=== PATIENT | female | born 1945 | race Caucasian/White ===

== ENCOUNTER 2019-08-27 08:10 | Day surgery (SDC) | payer MEDICARE, BC ==
[~2019-08-27 08:10] MED LIST: Midazolam 1 MG/ML 2 ML SDV ONE; Propofol 200 MG/20 ML SDV ONE; fentaNYL 100 MCG/2 ML SDV ONE
[2019-08-27] MEDS ORDERED: Lactated Ringers 1,000 ML IV SCH (09:00)
[2019-08-27] MEDS ORDERED: Cyanocobalamin (Vitamin B12) 1,000 MCG/ML SDV IM ONE (09:00)
[2019-08-27] MEDS ORDERED: Glycopyrrolate 0.2 MG/ML 2 ML SDV IVPUSH ONE (09:15)
[2019-08-27] MEDS ORDERED: MVI, Adult with Vitamin K 10 ML, Thiamine 200 MG, Chromium/Copper/Mang/Selen/Zn 1 ML in... IV ONE ×4 (10:00)
[2019-08-27] MEDS ORDERED: Pantoprazole 40 MG Vial IVPUSH ONE (10:39)
[2019-08-28 17:10] LABS: H. PYLORI BREATH TEST Negative (Negative)
--- NOTE | 2019-09-04 13:04 | OR ---
DATE OF PROCEDURE: 08/27/2019 SURGEON: Glenroy Bernal MD PREOPERATIVE DIAGNOSIS: Dysphagia status post Uadrey-en-Y gastric bypass. POSTOPERATIVE DIAGNOSIS: Dysphagia status post Audrey-en-Y gastric bypass with: 1. Large marginal ulcer. 2. Foreign body (sutured) at gastrojejunostomy. OPERATIVE PROCEDURE: Upper GI endoscopy with removal of suture at gastrojejunostomy ([id number]). ANESTHESIA: IV sedation. INDICATION FOR PROCEDURE: The patient is 9 years status post Audrey-en-Y gastric bypass presenting with some increasing dysphagia. The plan is to proceed with upper GI endoscopy with biopsies and/or dilation as indicated. Potential risks including bleeding and perforation were discussed and the patient wishes to proceed. DETAILS OF PROCEDURE: The patient was taken to the operating room and placed in a left lateral decubitus position. IV sedation was administered after which the upper GI endoscope was passed orally through the length of the esophagus and into the area of the gastric pouch. At that point, the patient was noted to have some narrowing of the gastrojejunostomy, but this was associated with a large marginal ulcer located within adjacent to the gastrojejunostomy. This was covered with thick fibrinous exudate with no true stricture per se. There was also a Prolene suture which was then ligated into the wound. This was excised with the endoscopic scissors and at that point the scope was passed through the area of the gastrojejunostomy roughly 20 cm from the Audrey limb with no additional abnormalities being noted. The scope was then withdrawn and the procedure then concluded. Plan will be to give Protonix 40 mg IV in the recovery room and then begin Protonix 40 mg daily. We will have her followup with Lea Ornelas in roughly 2 weeks. Glenroy Bernal MD /[id number]
== END 2019-08-27 13:01 | disposition home or self-care (01) ==
LOC: JP.SDS 08:10
PROVIDERS: ATTEND Surgery
DX: K28.9 Gastrojejunal ulcer, unspecified as acute or chronic, without hemorrhage or perforation (principal); T18.2XXA Foreign body in stomach, initial encounter; I10 Essential (primary) hypertension; E11.9 Type 2 diabetes mellitus without complications; E78.5 Hyperlipidemia, unspecified; F32.9 Major depressive disorder, single episode, unspecified; G31.84 Mild cognitive impairment of uncertain or unknown etiology; M48.00 Spinal stenosis, site unspecified; Z88.2 Allergy status to sulfonamides
CPT/HCPCS: 43247; 83013; C9113; J2704; J3010; J3411; J3420; J3490; J7120; J2250

== ENCOUNTER 2019-09-21 21:07 | Emergency (ER) | payer MEDICARE, BC ==
--- NOTE | 2019-09-21 22:13 | EDM.PDOC ---
ED HPI GENERAL MEDICAL PROBLEM - General Chief Complaint: Abdominal Pain Time Seen by Provider: 09/21/19 22:06 Source of Information: Reports: Patient, Family, RN Notes Reviewed History Limitations: Reports: No Limitations - History of Present Illness INITIAL COMMENTS - FREE TEXT/NARRATIVE: 74-year-old female presents emergency department the complaint of intermittent nausea and vomiting, she is a known history of gastric bypass about 17 years ago has went through EGD on the of this last month does have a known ulcer has had problems keeping her medications down - Related Data Allergies Allergy/AdvReac Type Severity Reaction Status Date / Time No Known Allergies Allergy Verified 09/21/19 21:37 Home Meds: Home Meds Aspirin [Halfprin] 81 mg PO DAILY 08/26/19 [History] Calcium Carbonate 1,000 mg PO ASDIRECTED PRN 08/26/19 [History] Cholecalciferol (Vitamin D3) [Vitamin D3] 1,000 unit PO DAILY 08/26/19 [History] Clobetasol [Clobetasol Propionate 0.05%] 30 gm TOP BID 08/26/19 [History] Cyanocobalamin (Vitamin B-12) [B-12] 1,000 mcg PO DAILY 08/26/19 [History] Cyclobenzaprine HCl 5 mg PO TID PRN 08/26/19 [History] Iron 66 mg PO DAILY 08/26/19 [History] Lactobacillus Acidophilus [Acidophilus] 1 each PO DAILY 08/26/19 [History] Lisinopril 40 mg PO DAILY 08/26/19 [History] Magnesium Oxide 250 mg PO DAILY 08/26/19 [History] Metoprolol Succinate 150 mg PO DAILY 08/26/19 [History] Multivitamin [Multi-Vitamin Daily] 1 each PO DAILY 08/26/19 [History] Pantoprazole [ProTONIX] 40 mg PO DAILY 08/26/19 [History] Rosuvastatin [Crestor] 20 mg PO DAILY 08/26/19 [History] Sertraline [Zoloft] 100 mg PO DAILY 08/26/19 [History] amLODIPine Besylate [Amlodipine Besylate] 10 mg PO DAILY 08/26/19 [History] hydrOXYzine HCl [Hydroxyzine HCl] 50 mg PO DAILY 08/26/19 [History] metFORMIN [Glucophage] 2,000 mg PO BIDMEALS 08/26/19 [History] Insulin Detemir [Levemir Flextouch] 10 unit SQ BEDTIME 08/27/19 [History] Past Medical History HEENT History: Reports: Cataract, Hard of Hearing, Impaired Vision Cardiovascular History: Reports: High Cholesterol, Hypertension Gastrointestinal History: Reports: GERD Genitourinary History: Reports: Renal Calculus [place] NET History: Reports: , Spontaneous Musculoskeletal History: Reports: Arthritis, Back Pain, Chronic, Gout Neurological History: Reports: CVA, Headaches, Chronic, Other (See Below) Other Neuro History: spinal stenosis Psychiatric History: Reports: Depression Endocrine/Metabolic History: Reports: Diabetes, Type II, Obesity/BMI 30+ Dermatologic History: Reports: Eczema - Infectious Disease History Infectious Disease History: Reports: Chicken Pox, Measles - Past Surgical History HEENT Surgical History: Reports: Cataract Surgery Cardiovascular Surgical History: Reports: None GI Surgical History: Reports: Appendectomy, Bariatric Procedure, Colonoscopy, EGD Female Surgical History: Reports: Section Neurological Surgical History: Reports: Lumbar Spine Musculoskeletal Surgical History: Reports: Carpal Tunnel, Hip Replacement, Knee Replacement Other Musculoskeletal Surgeries/Procedures:: right hip and both knees Dermatological Surgical History: Reports: Skin Biopsy Social & Family History - Family History Family Medical History: Noncontributory - Tobacco Use Smoking Status *Q: Never Smoker - Caffeine Use Caffeine Use: Reports: Tea - Recreational Drug Use Recreational Drug Use: No ED ROS GENERAL - Review of Systems Review Of Systems: See Below Constitutional: Reports: No Symptoms HEENT: Reports: No Symptoms Respiratory: Reports: No Symptoms Cardiovascular: Reports: No Symptoms GI/Abdominal: Reports: Nausea, Vomiting. Denies: Abdominal Pain : Reports: No Symptoms ED EXAM, GI/ABD - Physical Exam Exam: See Below Exam Limited By: No Limitations General Appearance: Alert, WD/WN, No Apparent Distress Respiratory/Chest: No Respiratory Distress, Lungs Clear, Normal Breath Sounds, No Accessory Muscle Use, Chest Non-Tender Cardiovascular: Regular Rate, Rhythm, No Murmur GI/Abdominal Exam: Soft, Non-Tender Course - Vital Signs Last Recorded V/S: Last Vital Signs Temp 97.9 F 09/21/19 21:48 Pulse 97 09/21/19 22:04 Resp 16 09/21/19 21:48 BP 133/76 09/21/19 22:04 Pulse Ox 96 09/21/19 21:48 - Orders/Labs/Meds Orders: Active Orders 24 hr Category Date Time Status Peripheral IV Care [RC] . DIRECTED Care 09/21/19 22:50 Ordered MVI, Adult with Vitamin K [Infuvite Adult] 10 ml Med 09/21/19 22:50 Ordered Thiamine [Vitamin B-1] 200 mg Folic Acid 1 mg Magnesium Sulfate [Magnesium Sulfate 50%] 2 gm Dextrose 5%-Lactated Ringers 1,000 ml IV ONETIME Sodium Chloride 0.9% [Saline Flush] Med 09/21/19 22:50 Ordered 10 ml FLUSH ASDIRECTED PRN Peripheral IV Insertion Adult [OM.PC] Urgent Oth 09/21/19 22:50 Ordered Medication Orders Multivitamins/Minerals 10 ml/Thiamine HCl 200 mg/ Folic Acid 1 mg/ Magnesium Sulfate 2 gm/ Dextrose/Lactated Ringer' s 1,016.2 mls @ 999 mls/hr IV ONETIME ONE Stop: 09/21/19 23:51 Sodium Chloride (Saline Flush) 10 ml FLUSH ASDIRECTED PRN PRN Reason: Keep Vein Open Labs: Laboratory Tests 09/21/19 09/21/19 09/21/19 Range/Units 22:11 22:18 22:18 WBC 12.4 H (4.5-11.0) K/uL RBC 4.72 (3.30-5.50) M/uL Hgb 12.3 (12.0-15.0) g/dL Hct 39.3 (36.0-48.0) % MCV 83 (80-98) fL MCH 26 L (27-31) pg MCHC 31 L (32-36) % Plt Count 302 (150-400) K/uL Neut % (Auto) 70 H (36-66) % Lymph % (Auto) 20 L (24-44) % [place] % (Auto) 9 H (2-6) % Eos % (Auto) 2 (2-4) % Baso % (Auto) 0 (0-1) % Sodium 140 (140-148) mmol/L Potassium 3.8 (3.6-5.2) mmol/L Chloride 101 (100-108) mmol/L Carbon Dioxide 26 (21-32) mmol/L Anion Gap 13.3 (5.0-14.0) mmol/L BUN 15 (7-18) mg/dL Creatinine 1.2 H (0.6-1.0) mg/dL Est Cr Clr Drug Dosing 33.52 mL/min Estimated GFR (MDRD) 44 L (>60) Glucose 132 H (74-106) mg/dL Lactic Acid (0.4-2.0) mmol/L Calcium 8.8 (8.5-10.1) mg/dL Total Bilirubin 0.8 (0.2-1.0) mg/dL AST 20 (15-37) U/L ALT 18 (12-78) U/L Alkaline Phosphatase 108 (46-116) U/L Total Protein 7.2 (6.4-8.2) g/dL Albumin 3.1 L (3.4-5.0) g/dL Globulin 4.1 H (2.3-3.5) g/dL Albumin/Globulin Ratio 0.8 L (1.2-2.2) Urine Color [place] A (YELLOW) Urine Appearance Slightly cloudy A (CLEAR) Urine pH 5.5 (5.0-8.0) Ur Specific Agency 1.025 (1.008-1.030) Urine Protein Negative (NEGATIVE) mg/dL Urine Glucose (UA) Negative (NEGATIVE) mg/dL Urine Ketones 15 H (NEGATIVE) mg/dL Urine Occult Blood Trace-intact H (NEGATIVE) Urine Nitrite Negative (NEGATIVE) Urine Bilirubin Small H (NEGATIVE) Urine Urobilinogen 0.2 (0.2-1.0) EU/dL Ur Leukocyte Esterase Small H (NEGATIVE) Urine RBC 0-5 (0-5) Urine WBC 5-10 H (0-5) Ur Epithelial Cells Few Amorphous Sediment Not seen Urine Bacteria Many Urine Mucus Not seen 09/21/19 Range/Units 22:18 WBC (4.5-11.0) K/uL RBC (3.30-5.50) M/uL Hgb (12.0-15.0) g/dL Hct (36.0-48.0) % MCV (80-98) fL MCH (27-31) pg MCHC (32-36) % Plt Count (150-400) K/uL Neut % (Auto) (36-66) % Lymph % (Auto) (24-44) % [place] % (Auto) (2-6) % Eos % (Auto) (2-4) % Baso % (Auto) (0-1) % Sodium (140-148) mmol/L Potassium (3.6-5.2) mmol/L Chloride (100-108) mmol/L Carbon Dioxide (21-32) mmol/L Anion Gap (5.0-14.0) mmol/L BUN (7-18) mg/dL Creatinine (0.6-1.0) mg/dL Est Cr Clr Drug Dosing mL/min Estimated GFR (MDRD) (>60) Glucose (74-106) mg/dL Lactic Acid 1.7 (0.4-2.0) mmol/L Calcium (8.5-10.1) mg/dL Total Bilirubin (0.2-1.0) mg/dL AST (15-37) U/L ALT (12-78) U/L Alkaline Phosphatase (46-116) U/L Total Protein (6.4-8.2) g/dL Albumin (3.4-5.0) g/dL Globulin (2.3-3.5) g/dL Albumin/Globulin Ratio (1.2-2.2) Urine Color (YELLOW) Urine Appearance (CLEAR) Urine pH (5.0-8.0) Ur Specific Agency (1.008-1.030) Urine Protein (NEGATIVE) mg/dL Urine Glucose (UA) (NEGATIVE) mg/dL Urine Ketones (NEGATIVE) mg/dL Urine Occult Blood (NEGATIVE) Urine Nitrite (NEGATIVE) Urine Bilirubin (NEGATIVE) Urine Urobilinogen (0.2-1.0) EU/dL Ur Leukocyte Esterase (NEGATIVE) Urine RBC (0-5) Urine WBC (0-5) Ur Epithelial Cells Amorphous Sediment Urine Bacteria Urine Mucus Meds: Medications Generic Name Dose Route Start Last Admin Trade Name Freq PRN Reason Stop Dose Admin Multivitamins/Minerals 10 ml/ 1,016.2 mls @ 999 mls/hr 09/21/19 22:50 Thiamine HCl 200 mg/ Folic IV 09/21/19 23:51 Acid 1 mg/ Magnesium Sulfate 2 ONETIME ONE gm/ Dextrose/Lactated Ringer' s Sodium Chloride 10 ml 09/21/19 22:50 Saline Flush FLUSH ASDIRECTED PRN Keep Vein Open Departure - Departure Time of Disposition: 22:55 Disposition: Eloped 07 Condition: Fair Clinical Impression: Dysphagia Qualifiers: Dysphagia type: esophageal phase Qualified Code(s): R13.10 - Dysphagia, unspecified - Discharge Information Referrals: PCP,None [Primary Care Provider] - Forms: ED Department Discharge Additional Instructions: Please route report to the outpatient surgery center for an EGD with Dr. Bernal - My Orders Last 24 Hours: My Active Orders 09/21/19 22:50 Peripheral IV Care [RC] . DIRECTED MVI, Adult with Vitamin K [Infuvite Adult] 10 ml Thiamine [Vitamin B-1] 200 mg Folic Acid 1 mg Magnesium Sulfate [Magnesium Sulfate 50%] 2 gm Dextrose 5%- Lactated Ringers 1,000 ml IV ONETIME Sodium Chloride 0.9% [Saline Flush] 10 ml FLUSH ASDIRECTED PRN Peripheral IV Insertion Adult [OM.PC] Urgent - Assessment/Plan Last 24 Hours: My Active Orders 09/21/19 22:50 Peripheral IV Care [RC] . DIRECTED MVI, Adult with Vitamin K [Infuvite Adult] 10 ml Thiamine [Vitamin B-1] 200 mg Folic Acid 1 mg Magnesium Sulfate [Magnesium Sulfate 50%] 2 gm Dextrose 5%- Lactated Ringers 1,000 ml IV ONETIME Sodium Chloride 0.9% [Saline Flush] 10 ml FLUSH ASDIRECTED PRN Peripheral IV Insertion Adult [OM.PC] Urgent Plan: Assessment Acuity = acute Site and laterality = dysphagia complicated the patient with known history of gastric bypass Etiology = unknown Manifestations = intermittent vomiting Location of injury = Home Lab values = WBC elevated 12.4 consistent leukocytosis, creatinine elevated 1.4 consistent chronic renal failure stage G3 B lactic acid normal 1.7 urinalysis specific gravity 1.025 consistent with dehydration and 5-10 WBCs consistent with pyuria Plan Call discussed case with Dr. Bernal at 2250 recommended the banana bag set up for a EGD in the morning, at which time he will evaluate her This note was dictated using [employer] voice recognition software please call with any questions on syntax or grammar.
[2019-09-21] MEDS ORDERED: Sodium Chloride 0.9% 10 ML Syringe FLUSH PRN (22:50)
[2019-09-21] MEDS ORDERED: MVI, Adult with Vitamin K 10 ML, Thiamine 200 MG, Folic Acid 1 MG, Magnesium Sulfate 2 ... IV ONE ×5 (22:50)
[2019-09-21] MEDS ORDERED: Acetaminophen 500 MG Tab PO ONE (23:14)
== END 2019-09-22 00:30 | disposition home or self-care (01) ==
LOC: JP.ED 21:07
DX: R13.10 Dysphagia, unspecified (principal); I10 Essential (primary) hypertension; E78.5 Hyperlipidemia, unspecified; K21.9 Gastro-esophageal reflux disease without esophagitis; Z86.73 Personal history of transient ischemic attack (TIA), and cerebral infarction without residual deficits; E11.9 Type 2 diabetes mellitus without complications; F41.9 Anxiety disorder, unspecified; F32.9 Major depressive disorder, single episode, unspecified; E66.9 Obesity, unspecified; Z68.35 Body mass index [BMI] 35.0-35.9, adult; Z79.4 Long term (current) use of insulin; Z79.82 Long term (current) use of aspirin; Z79.899 Other long term (current) drug therapy
CPT/HCPCS: 36415; 80053; 81001; 83605; 85025; 96365; 99283; 99284; J3411; J3475; J7042; J3490

== ENCOUNTER 2019-09-22 08:30 | Day surgery (SDC) | payer MEDICARE, BC ==
[2019-09-22] MEDS ORDERED: Cyanocobalamin (Vitamin B12) 1,000 MCG/ML SDV IM ONE (09:30)
[2019-09-22] MEDS ORDERED: Lactated Ringers 1,000 ML IV ONE (09:30)
[2019-09-22] MEDS ORDERED: Glycopyrrolate 0.2 MG/ML 2 ML SDV IVPUSH ONE (09:45)
[2019-09-22] MEDS ORDERED: fentaNYL 100 MCG/2 ML SDV ONE (10:24)
[2019-09-22] MEDS ORDERED: Propofol 200 MG/20 ML SDV ONE (10:25)
[2019-09-22] MEDS ORDERED: MVI, Adult with Vitamin K 10 ML, Thiamine 200 MG, Chromium/Copper/Mang/Selen/Zn 1 ML in... IV ONE ×4 (10:30)
--- NOTE | 2019-09-28 11:13 | OR ---
DATE OF PROCEDURE: 09/22/2019 SURGEON: Glenroy Bernal MD PREOPERATIVE DIAGNOSIS: Persistent dysphagia with history of marginal ulcer. POSTOPERATIVE DIAGNOSIS: Persistent dysphagia with persistent marginal ulcer and stricturing of gastrojejunostomy. OPERATIVE PROCEDURE: Upper GI endoscopy. ANESTHESIA: IV sedation. INDICATION FOR PROCEDURE: A 74-year-old elderly female status post Audrey-en-Y gastric bypass, presenting with persistent dysphagia. On 08/27/2019, the patient underwent an upper endoscopy which showed a large marginal ulcer noted within the gastrojejunostomy. She has been on twice a day Protonix since that time, but has still persistent problems with dysphagia. The plan is to proceed with upper GI endoscopy with biopsies and/or dilation as indicated. Potential risks including bleeding and perforation were discussed, and the patient wishes to proceed. DESCRIPTION OF PROCEDURE: The patient was taken to operating room, placed in the left lateral decubitus position. IV sedation was administered, after which the upper GI endoscope was passed orally through the length of the esophagus and into the gastric pouch. There was some retained pills within the pouch and the patient had a very narrow gastrojejunostomy. This was covered with fibrinous exudate consistent with a persistent ulcer roughly half of its circumference. It was felt to be ill-advised to try dilating this for fear of perforation and/or bleeding problems, and the scope was then withdrawn, procedure then concluded. The situation was discussed with the patient postoperatively, and the plan will be to proceed with an open revision of gastrojejunostomy on October 05. She has a large upper abdominal incisional hernia, which will be repaired concurrently most likely without mesh, given the open GI tract during the above-noted procedure. Potential risks of procedure were reviewed and this will be reviewed further with the patient preceding the upcoming surgical intervention. In the meantime, she will be continued on the Protonix. Glenroy Bernal MD Job #: [id number]
== END 2019-09-22 12:45 | disposition home or self-care (01) ==
LOC: JP.SDS 08:30
PROVIDERS: ATTEND Surgery
DX: K91.89 Other postprocedural complications and disorders of digestive system (principal); K28.9 Gastrojejunal ulcer, unspecified as acute or chronic, without hemorrhage or perforation; K21.9 Gastro-esophageal reflux disease without esophagitis; M48.00 Spinal stenosis, site unspecified; E11.9 Type 2 diabetes mellitus without complications; Z98.84 Bariatric surgery status
CPT/HCPCS: 43235; 82962; J2704; J3010; J3411; J3420; J3490; J7120

== ENCOUNTER 2019-10-05 08:30 | Inpatient (IN) | payer MEDICARE, BC ==
[~2019-10-05 08:30] MED LIST changes: +Bupivacaine 0.5% 50 ML MDV ONE; +Ketamine 50 MG in Sodium Chloride 0.9% 49.5 ML IV SCH; +Ketamine 500 MG/5 ML MDV IV SCH; +Lidocaine 0.4%/D5W 2 GM/500 ML BAG IV SCH; +Lidocaine 1% with EPINEPHrine 1:100,000 50 ML MDV ONE; +Lidocaine 2% 100 MG/5 ML Syringe IVPUSH SCH; +Meropenem 500 MG SDV ONE; -Midazolam 1 MG/ML 2 ML SDV ONE; -Propofol 200 MG/20 ML SDV ONE; -fentaNYL 100 MCG/2 ML SDV ONE
[2019-10-05] MEDS ORDERED: Celecoxib 200 MG Cap PO ONE (10:15)
[2019-10-05] MEDS ORDERED: Acetaminophen 500 MG Tab PO ONE (10:15)
[2019-10-05] MEDS ORDERED: Gabapentin 300 MG Cap PO ONE (10:15)
[2019-10-05] MEDS ORDERED: Scopolamine 1.5 MG Transdermal Patch TOP SCH (10:15)
[2019-10-05] MEDS ORDERED: Dextrose 5%-Lactated Ringers 1,000 ML IV SCH ×2 (11:00→20:00)
[2019-10-05] MEDS ORDERED: fentaNYL 250 MCG/5 ML SDV ONE ×2 (11:36→15:05)
[2019-10-05] MEDS ORDERED: Rocuronium 50 MG/5 ML Vial ONE ×2 (11:36→15:05)
[2019-10-05] MEDS ORDERED: Succinylcholine 200 MG/10 ML MDV ONE (11:36)
[2019-10-05] MEDS ORDERED: Glycopyrrolate 0.2 MG/ML 5 ML MDV ONE (11:36)
[2019-10-05] MEDS ORDERED: Neostigmine Methylsulfate 1 MG/ML 5 ML Syringe ONE (11:36)
[2019-10-05] MEDS ORDERED: Propofol 200 MG/20 ML SDV ONE (11:36)
[2019-10-05] MEDS ORDERED: Ondansetron 4 MG/2 ML SDV ONE ×2 (11:36→14:15)
[2019-10-05] MEDS: cefOXitin 2 GM in Sodium Chloride 0.9% 50 ML IV ONE ×2 (12:51→18:40)
[2019-10-05] MEDS ORDERED: Lactated Ringers 1,000 ML ONE (16:07)
[2019-10-05] MEDS ORDERED: Insulin Lispro 100 Units/ML 3 ML Vial SUBCUT ONE (17:41)
[2019-10-05] MEDS ORDERED: Insulin Lispro 100 Unit/ML 3 ML KwikPen SUBCUT ONE (17:46)
[2019-10-05] MEDS ORDERED: Insulin Lispro 100 Unit/ML 3 ML KwikPen SUBCUT SCH (18:00)
[2019-10-05] MEDS ORDERED: cefOXitin 2 GM in Sodium Chloride 0.9% 50 ML IV SCH (18:00)
[2019-10-05] MEDS ORDERED: hydrOXYzine HCL 100 MG/2 ML SDV ONE (18:52)
[2019-10-05] MEDS ORDERED: Glucagon,Human Recombinant 1 MG Vial IM PRN (19:09)
[2019-10-05] MEDS ORDERED: diphenhydrAMINE 50 MG/ML SDV IVPUSH PRN (19:09)
[2019-10-05] MEDS ORDERED: 50% Dextrose in Water 50 ML Syringe IVPUSH PRN (19:09)
[2019-10-05] MEDS ORDERED: hydrOXYzine HCL 100 MG/2 ML SDV IM PRN (19:09)
[2019-10-05] MEDS ORDERED: Labetalol 20 MG/4 ML Syringe IVPUSH PRN (19:09)
[2019-10-05] MEDS ORDERED: Metoclopramide 10 MG/2 ML SDV IVPUSH PRN (19:09)
[2019-10-05] MEDS ORDERED: Albuterol/Ipratropium 3.0-0.5 MG/3 ML Neb Soln INH PRN (19:09)
[2019-10-05] MEDS ORDERED: Ondansetron 4 MG/2 ML SDV IVPUSH PRN (19:09)
[2019-10-05] MEDS ORDERED: HYDROmorphone/Normal Saline 15 MG/30 ML PCA IV PRN (19:36)
[2019-10-05] MEDS ORDERED: Naloxone 0.4 MG/ML SDV IV PRN (19:36)
[2019-10-05] MEDS ORDERED: Pantoprazole 40 MG Vial IVPUSH SCH (20:00)
[2019-10-05] MEDS ORDERED: Lactated Ringers 1,000 ML IV SCH (20:00)
[2019-10-05] MEDS: Celecoxib 200 MG Cap PO SCH (20:47)
[2019-10-05] MEDS: Acetaminophen Soln 650 MG/20.3 ML UD Cup PO SCH (20:47)
[2019-10-05] MEDS: Acetaminophen 160 MG Tab,Disintegrating PO SCH (20:48)
[2019-10-05] MEDS: Albuterol 0.083% 2.5 MG/3 ML Neb Soln INH SCH (20:48)
[2019-10-05] MEDS ORDERED: Gabapentin 250 MG/5 ML Solution ML 470 ML Bottle PO SCH (21:00)
[2019-10-05] MEDS: Heparin Sodium 5,000 Units/ML Vial SUBCUT SCH (21:14)
[2019-10-05] MEDS: Insulin Lispro 100 Unit/ML 3 ML KwikPen SUBCUT SCH (22:47)
[2019-10-06] MEDS ORDERED: Iopamidol 612 MG/ML 50 ML SDV PO STA (01:22)
[2019-10-06] MEDS: Acetaminophen Soln 650 MG/20.3 ML UD Cup PO SCH ×4 (01:25→19:21)
[2019-10-06] MEDS: Acetaminophen 160 MG Tab,Disintegrating PO SCH (01:42)
[2019-10-06] MEDS: cefOXitin 2 GM in Sodium Chloride 0.9% 50 ML IV SCH ×4 (03:31→21:12)
[2019-10-06] MEDS: Insulin Lispro 100 Unit/ML 3 ML KwikPen SUBCUT SCH ×4 (04:37→21:54)
--- NOTE | 2019-10-06 06:03 | CRLCR ---
Indication: Revision of her own line Technique: Frontal views of the abdomen obtained following ingestion of noted contrast agent at 0 and 15 minutes delays. Comparison: None Findings/Impression: There is transit of oral contrast through the remnant stomach and into the small bowel. No extraluminal contrast extravasation is appreciated. Surgical drains and skin gerber are noted. Dictated by Yevgeniy Carlson MD @ Oct 06 2019 6:00AM Signed by Dr. Yevgeniy Carlson @ Oct 06 2019 6:02AM
[2019-10-06] MEDS: Albuterol 0.083% 2.5 MG/3 ML Neb Soln INH SCH (07:07)
--- NOTE | 2019-10-06 07:11 | PCM.PN ---
- General Info Date of Service: 10/06/19 Subjective Update: Got some rest last night, no complaints this morning. Functional Status: Reports: Pain Controlled - Review of Systems General: Reports: No Symptoms HEENT: Reports: No Symptoms Pulmonary: Reports: No Symptoms Cardiovascular: Reports: No Symptoms Gastrointestinal: Reports: No Symptoms Genitourinary: Reports: No Symptoms Musculoskeletal: Reports: No Symptoms Skin: Reports: No Symptoms Neurological: Reports: No Symptoms - Patient Data Vitals - Most Recent: Last Vital Signs Temp 36.2 C 10/06/19 03:00 Pulse 94 10/06/19 06:00 Resp 18 10/06/19 06:00 BP 116/59 L 10/06/19 06:00 Pulse Ox 97 10/06/19 06:00 Weight - Most Recent: 87.09 kg I&O - Last 24 Hours: Intake & Output 10/05/19 10/06/19 10/06/19 22:59 06:59 14:59 Intake Total 2075 2130 Output Total 622 283 Balance 1453 1847 Lab Results Last 24 Hours: Laboratory Results - last 24 hr 10/05/19 10/05/19 10/06/19 Range/Units 10:30 10:30 04:00 WBC 14.6 H (4.5-11.0) K/uL RBC 4.04 (3.30-5.50) M/uL Hgb 10.4 L (12.0-15.0) g/dL Hct 34.5 L (36.0-48.0) % MCV 85 (80-98) fL MCH 26 L (27-31) pg MCHC 30 L (32-36) % Plt Count 279 (150-400) K/uL Neut % (Auto) 93 H (36-66) % Lymph % (Auto) 3 L (24-44) % [place] % (Auto) 4 (2-6) % Eos % (Auto) 0 L (2-4) % Baso % (Auto) 0 (0-1) % Sodium (140-148) mmol/L Potassium (3.6-5.2) mmol/L Chloride (100-108) mmol/L Carbon Dioxide (21-32) mmol/L Anion Gap (5.0-14.0) mmol/L BUN (7-18) mg/dL Creatinine (0.6-1.0) mg/dL Est Cr Clr Drug Dosing mL/min Estimated GFR (MDRD) (>60) Glucose (74-106) mg/dL Calcium (8.5-10.1) mg/dL Phosphorus (2.5-4.9) mg/dL Magnesium (1.8-2.4) mg/dL Ferritin 48 (8-388) ng/ml Total Bilirubin (0.2-1.0) mg/dL AST (15-37) U/L ALT (12-78) U/L Alkaline Phosphatase (46-116) U/L NT-Pro-B Natriuret Pep (5-125) pg/mL Total Protein (6.4-8.2) g/dL Albumin (3.4-5.0) g/dL Globulin (2.3-3.5) g/dL Albumin/Globulin Ratio (1.2-2.2) Blood Type O POSITIVE Gel Antibody Screen Negative 10/06/19 Range/Units 04:00 WBC (4.5-11.0) K/uL RBC (3.30-5.50) M/uL Hgb (12.0-15.0) g/dL Hct (36.0-48.0) % MCV (80-98) fL MCH (27-31) pg MCHC (32-36) % Plt Count (150-400) K/uL Neut % (Auto) (36-66) % Lymph % (Auto) (24-44) % [place] % (Auto) (2-6) % Eos % (Auto) (2-4) % Baso % (Auto) (0-1) % Sodium 135 L (140-148) mmol/L Potassium 4.4 (3.6-5.2) mmol/L Chloride 100 (100-108) mmol/L Carbon Dioxide 25 (21-32) mmol/L Anion Gap 14.4 H (5.0-14.0) mmol/L BUN 27 H D (7-18) mg/dL Creatinine 1.9 H D (0.6-1.0) mg/dL Est Cr Clr Drug Dosing 23.11 mL/min Estimated GFR (MDRD) 26 L (>60) Glucose 350 H (74-106) mg/dL Calcium 7.9 L (8.5-10.1) mg/dL Phosphorus 3.9 (2.5-4.9) mg/dL Magnesium 1.2 L (1.8-2.4) mg/dL Ferritin (8-388) ng/ml Total Bilirubin 0.4 (0.2-1.0) mg/dL AST 87 H D (15-37) U/L ALT 59 D (12-78) U/L Alkaline Phosphatase 72 (46-116) U/L NT-Pro-B Natriuret Pep 757 H (5-125) pg/mL Total Protein 6.4 (6.4-8.2) g/dL Albumin 2.6 L (3.4-5.0) g/dL Globulin 3.8 H (2.3-3.5) g/dL Albumin/Globulin Ratio 0.7 L (1.2-2.2) Blood Type Gel Antibody Screen Med Orders - Current: Current Medications Acetaminophen (Tylenol) 650 mg PO Q6H [facility] Last Admin: 10/06/19 01:25 Dose: 650 mg Acetaminophen (Tylenol JrDoc Hdez) 640 mg PO Q6H [facility] Last Admin: 10/06/19 01:42 Dose: Not Given Albuterol (Proventil Neb Soln) 2.5 mg INH QIDRT [facility] Last Admin: 10/06/19 07:07 Dose: 2.5 mg Albuterol/Ipratropium (Duoneb 3.0-0.5 Mg/3 Ml) 3 ml INH ASDIRECTED PRN PRN Reason: BREATHING Celecoxib (Celebrex) 200 mg PO DAILY@1999 [facility] Last Admin: 10/05/19 20:47 Dose: 200 mg Cyanocobalamin (Vitamin B12) 1,000 mcg IM ONETIME ONE Stop: 10/07/19 09:01 Dextrose/Water (Dextrose 50% In Water) 50 ml IVPUSH ONETIME PRN PRN Reason: ACCUCHECK LESS THAN 70 Diphenhydramine HCl (Benadryl) 50 mg IVPUSH Q4H PRN PRN Reason: ITCHING Gabapentin (Neurontin) 300 mg PO TID [facility] Last Admin: 10/05/19 21:15 Dose: 300 mg Glucagon (Glucagen) 1 mg IM ONETIME PRN PRN Reason: ACCUCHECK LESS THAN 70 Heparin Sodium (Porcine) (Heparin Sodium) 5,000 units SUBCUT Q12H [facility] Last Admin: 10/05/19 21:14 Dose: 5,000 units Hydromorphone HCl (Dilaudid Brush And Broom Clipper 15 Mg In Ns 30 Ml) 0 mg IV ASDIRECTED PRN; Protocol PRN Reason: [employer] PAIN [employer]OL Last Admin: 10/05/19 19:57 Dose: 15 mg Hydroxyzine HCl (Vistaril) 100 mg IM Q4H PRN PRN Reason: pain Last Admin: 10/05/19 19:00 Dose: 100 mg Lidocaine HCl/Dextrose (Lidocaine 2 Gm/D5w 500 Ml) 2 gm in 500 mls @ 15 mls/hr IV .Q24H [facility] Stop: 10/06/19 15:00 Last Admin: 10/05/19 18:27 Dose: 1 mg/min, 15 mls/hr Dextrose/Lactated Ringer's (Dextrose 5%-Lactated Ringers) 1,000 mls @ 75 mls/ hr IV ASDIRECTED [facility] Last Admin: 10/05/19 21:39 Dose: 75 mls/hr Multivitamins/Minerals 10 ml/Thiamine HCl 200 mg/ Chromium/Copper/Manganese/ Seleni/Zn 1 ml/ Dextrose/Lactated Ringer's 1,013 mls @ 174.999 mls/hr IV DAILY@ 1600 [facility] Lactated Ringer's (Ringers, Lactated) 1,000 mls @ 100 mls/hr IV ASDIRECTED [facility] Last Admin: 10/05/19 22:44 Dose: 100 mls/hr Cefoxitin Sodium 2 gm/ Sodium (Chloride) 50 mls @ 100 mls/hr IV Q6H [facility] Stop: 10/07/19 15:29 Last Admin: 10/06/19 03:31 Dose: 100 mls/hr Influenza Virus Vaccine (Fluzone High-Dose 2019- Syringe) 180 mcg IM .ONCE ONE Stop: 10/07/19 10:01 Insulin Human Lispro (Humalog) 0 unit SUBCUT Q6H [facility]; Protocol Last Admin: 10/06/19 04:37 Dose: 9 units Labetalol HCl (Normodyne) 5 mg IVPUSH Q5M PRN PRN Reason: SBP over 160 OR DBP over 95 Metoclopramide HCl (Reglan) 10 mg IVPUSH Q6H PRN PRN Reason: NAUSEA NOT CONTROL BY ZOFRAN Metoprolol Succinate (Toprol Xl) 150 mg PO DAILY [facility] Miscellaneous Information (Remove Patch) 1 ea TRDERM ONETIME ONE Stop: 10/07/19 10:01 Naloxone HCl (Narcan) 0.1 mg IV ASDIRECTED PRN PRN Reason: decreased respiratory rate Scopolamine Patch (Check) 1 each TOP DAILY@1000 [facility] Stop: 10/07/19 10:01 Ondansetron HCl (Zofran) 4 mg IVPUSH Q4H PRN PRN Reason: Nausea/Vomiting Pantoprazole Sodium (Protonix Iv) 40 mg IVPUSH Q24H [facility] Last Admin: 10/05/19 20:47 Dose: 40 mg Pharmacy Consult (Consult To Pharmacy) 1 each .XX ASDIRECTED [facility] Discontinued Medications Acetaminophen (Tylenol Extra Strength) 1,000 mg PO ONETIME ONE Stop: 10/05/19 10:16 Last Admin: 10/05/19 19:59 Dose: Not Given Bupivacaine HCl (Marcaine 0.5%) Confirm Administered Dose 50 ml .ROUTE .STK-MED ONE Stop: 10/05/19 06:42 Celecoxib (Celebrex) 200 mg PO ONETIME ONE Stop: 10/05/19 10:16 Last Admin: 10/05/19 19:58 Dose: Not Given Ropivacaine 45 ml/Dexamethasone 8 mg/Epinephrine HCl 0.4 mg/ Sodium Chloride 32.6 ml 0 ml NERVRT ASDIRECTED [facility] Last Admin: 10/05/19 12:52 Dose: 80 syringe Fentanyl (Sublimaze) Confirm Administered Dose 250 mcg .ROUTE .STK-MED ONE Stop: 10/05/19 11:37 Fentanyl (Sublimaze) Confirm Administered Dose 250 mcg .ROUTE .STK-MED ONE Stop: 10/05/19 15:06 Gabapentin (Neurontin) 300 mg PO ONETIME ONE Stop: 10/05/19 10:16 Last Admin: 10/05/19 19:58 Dose: Not Given Glycopyrrolate (Robinul) Confirm Administered Dose 1 mg .ROUTE .STK-MED ONE Stop: 10/05/19 11:37 Hydroxyzine HCl (Vistaril) Confirm Administered Dose 100 mg .ROUTE .STK-MED ONE Stop: 10/05/19 18:53 Last Admin: 10/05/19 19:28 Dose: Not Given Ketamine HCl 50 mg/ Sodium (Chloride) 50 mls @ 15.6 mls/hr IV ASDIRECTED [facility] Cefoxitin Sodium 2 gm/ Sodium (Chloride) 50 mls @ 100 mls/hr IV ONCALL ONE Stop: 10/05/19 12:14 Last Admin: 10/05/19 18:40 Dose: Not Given Linezolid (Zyvox) Confirm Administered Dose 300 mls @ as directed .ROUTE .STK- MED ONE Stop: 10/05/19 06:42 Dextrose/Lactated Ringer's (Dextrose 5%-Lactated Ringers) 1,000 mls @ 100 mls/ hr IV ASDIRECTED [facility] Last Admin: 10/05/19 10:42 Dose: 100 mls/hr Lactated Ringer's (Ringers, Lactated) Confirm Administered Dose 1,000 mls @ as directed .ROUTE .STK-MED ONE Stop: 10/05/19 16:08 Cefoxitin Sodium 2 gm/ Sodium (Chloride) 50 mls @ 100 mls/hr IV Q6H [facility] Stop: 10/07/19 12:29 Last Admin: 10/05/19 21:37 Dose: 100 mls/hr Insulin Human Lispro (Humalog) 5 unit SUBCUT ONETIME ONE Stop: 10/05/19 17:42 Last Admin: 10/05/19 22:18 Dose: Not Given Insulin Human Lispro (Humalog) Confirm Administered Dose 300 unit SUBCUT .STK- MED ONE Stop: 10/05/19 17:47 Last Admin: 10/05/19 17:52 Dose: 5 units Insulin Human Lispro (Humalog) 0 unit SUBCUT Q6H [facility]; Protocol Last Admin: 10/05/19 21:24 Dose: Not Given Iopamidol (Isovue-300 (61%)) 50 ml PO ASDIRECTED STA Stop: 10/06/19 01:23 Last Admin: 10/06/19 05:03 Dose: 50 ml Ketamine HCl (Ketalar) 26 mg IV ASDIRECTED [facility] Lidocaine HCl (Xylocaine 2%) 100 mg IVPUSH ASDIRECTED [facility] Lidocaine/Epinephrine (Xylocaine 1% With Epinephrine 1:100,000) Confirm Administered Dose 50 ml .ROUTE .STK-MED ONE Stop: 10/05/19 06:42 Meropenem (Merrem) Confirm Administered Dose 500 mg .ROUTE .STK-MED ONE Stop: 10/05/19 06:42 Last Admin: 10/05/19 15:23 Dose: 500 mg Neostigmine Methylsulfate (Neostigmine) Confirm Administered Dose 5 mg .ROUTE .STK-MED ONE Stop: 10/05/19 11:37 Ondansetron HCl (Zofran) Confirm Administered Dose 4 mg .ROUTE .STK-MED ONE Stop: 10/05/19 11:37 Ondansetron HCl (Zofran) Confirm Administered Dose 4 mg .ROUTE .STK-MED ONE Stop: 10/05/19 14:16 Propofol (Diprivan 20 Ml) Confirm Administered Dose 200 mg .ROUTE .STK-MED ONE Stop: 10/05/19 11:37 Rocuronium Felicity (Zemuron) Confirm Administered Dose 50 mg .ROUTE .STK-MED ONE Stop: 10/05/19 11:37 Rocuronium Felicity (Zemuron) Confirm Administered Dose 50 mg .ROUTE .STK-MED ONE Stop: 10/05/19 15:06 Scopolamine (Transderm-Scop) 1.5 mg TOP Q72H [facility] Stop: 10/07/19 10:00 Last Admin: 10/05/19 10:42 Dose: 1.5 mg Succinylcholine Chloride (Quelicin) Confirm Administered Dose 200 mg .ROUTE .STK -MED ONE Stop: 10/05/19 11:37 - Exam General: Alert, No Acute Distress Lungs: Normal Respiratory Effort Skin: Warm, Dry, Intact Wound/Incisions: Healing Well Psy/Mental Status: Alert, Normal Affect, Normal Mood - Problem List Review Problem List Initiated/Reviewed/Updated: No - Assessment Assessment:: Recovering well, good pain control and urine output, blood sugar elevated at 350 mg/dL and slight bump in creatinine. Upper GI with contrast confirmed good transit without leakage. - Plan Plan:: Starting Lantus 10 units subcutaneous at bedtime, liquid metformin 100 mg twice daily, continue blood glucose monitoring. Changing IV fluid to LR at 175 ml/h, at noon change to 125 ml/h. Starting magnesium sulfate 2 g every 2 hours. Diet: step 2, no solids.
[2019-10-06] MEDS ORDERED: Lactated Ringers 1,000 ML IV SCH ×2 (07:30→12:00)
[2019-10-06] MEDS ORDERED: Ondansetron 4 MG Tab.DIS PO PRN (07:32)
[2019-10-06] MEDS ORDERED: Cyclobenzaprine 10 MG Tab PO PRN (07:34)
[2019-10-06] MEDS ORDERED: metFORMIN 500 MG/5 ML PO SCH (08:00)
[2019-10-06] MEDS ORDERED: Insulin Glargine,Human Rec. Analog 100 Units/ML 3 ML Pen SUBCUT ONE (08:30)
[2019-10-06] MEDS: Aspirin 81 MG Tab.EC PO SCH (08:39)
[2019-10-06] MEDS: Sertraline 50 MG Tab PO SCH (08:39)
[2019-10-06] MEDS: amLODIPine 10 MG Tab PO SCH (08:39)
[2019-10-06] MEDS: Lisinopril 20 MG Tab PO SCH (08:39)
[2019-10-06] MEDS: Clobetasol 0.05% Crm 30 GM Tube TOP SCH ×2 (08:43→21:13)
[2019-10-06] MEDS: Metoprolol Succinate 50 MG Tab.ER PO SCH (08:45)
[2019-10-06] MEDS ORDERED: Metoprolol Succinate 50 MG Tab.ER PO SCH (09:00)
[2019-10-06] MEDS: Heparin Sodium 5,000 Units/ML Vial SUBCUT SCH ×2 (10:28→21:53)
[2019-10-06] MEDS: SCOPOLAMINE PATCH CHECK TOP SCH (10:30)
[2019-10-06] MEDS: Magnesium Sulfate/Water 2 GM in Premix Bag 1 BAG IV SCH ×3 (11:02→21:54)
[2019-10-06] MEDS: Albuterol/Ipratropium 3.0-0.5 MG/3 ML Neb Soln INH SCH ×3 (11:34→21:12)
[2019-10-06] MEDS ORDERED: MVI, Adult with Vitamin K 10 ML, Thiamine 200 MG, Chromium/Copper/Mang/Selen/Zn 1 ML in... IV SCH ×8 (12:00→16:00)
[2019-10-06] MEDS ORDERED: Lactated Ringers 500 ML IV ONE (15:15)
[2019-10-06] MEDS: HYDROmorphone 2 MG Tab PO PRN ×2 (15:25→19:18)
[2019-10-06] MEDS: Celecoxib 200 MG Cap PO SCH (19:21)
[2019-10-06] MEDS: Pantoprazole 40 MG Delayed-Release Granules 1 Packet PO SCH (21:12)
[2019-10-06] MEDS: Insulin Glargine,Human Rec. Analog 100 Units/ML 3 ML Pen SUBCUT SCH (21:53)
[2019-10-07] MEDS: HYDROmorphone 2 MG Tab PO PRN ×2 (01:55→08:34)
[2019-10-07] MEDS: Acetaminophen Soln 650 MG/20.3 ML UD Cup PO SCH ×4 (01:55→20:24)
[2019-10-07] MEDS: cefOXitin 2 GM in Sodium Chloride 0.9% 50 ML IV SCH ×2 (02:03→08:47)
[2019-10-07] MEDS: Magnesium Sulfate/Water 2 GM in Premix Bag 1 BAG IV SCH ×2 (04:05→10:25)
[2019-10-07] MEDS: Insulin Lispro 100 Unit/ML 3 ML KwikPen SUBCUT SCH ×4 (04:06→22:23)
[2019-10-07] MEDS ORDERED: Lactated Ringers 1,000 ML IV SCH (07:25)
[2019-10-07] MEDS: Albuterol/Ipratropium 3.0-0.5 MG/3 ML Neb Soln INH SCH ×4 (07:30→20:28)
[2019-10-07] MEDS: amLODIPine 10 MG Tab PO SCH (08:37)
[2019-10-07] MEDS: Aspirin 81 MG Tab.EC PO SCH (08:37)
[2019-10-07] MEDS: Lisinopril 20 MG Tab PO SCH (08:37)
[2019-10-07] MEDS: Metoprolol Succinate 50 MG Tab.ER PO SCH (08:38)
[2019-10-07] MEDS: Sertraline 50 MG Tab PO SCH (08:39)
[2019-10-07] MEDS ORDERED: Cyanocobalamin (Vitamin B12) 1,000 MCG/ML SDV IM ONE (09:00)
[2019-10-07] MEDS: SCOPOLAMINE PATCH CHECK TOP SCH (09:02)
[2019-10-07] MEDS: Heparin Sodium 5,000 Units/ML Vial SUBCUT SCH ×2 (10:26→22:30)
[2019-10-07] MEDS: Clobetasol 0.05% Crm 30 GM Tube TOP SCH ×2 (11:34→20:24)
--- NOTE | 2019-10-07 13:06 | PCM.PN ---
- General Info Date of Service: 10/07/19 Subjective Update: No pain or complaints this morning. Functional Status: Reports: Pain Controlled, Tolerating Diet, Ambulating, Urinating - Review of Systems General: Reports: No Symptoms HEENT: Reports: No Symptoms Pulmonary: Reports: No Symptoms Cardiovascular: Reports: No Symptoms Gastrointestinal: Reports: No Symptoms Genitourinary: Reports: No Symptoms Musculoskeletal: Reports: No Symptoms, Back Pain Skin: Reports: No Symptoms Neurological: Reports: No Symptoms - Patient Data Vitals - Most Recent: Last Vital Signs Temp 36.6 C 10/07/19 11:31 Pulse 68 10/07/19 11:31 Resp 10 L 10/07/19 11:31 BP 100/56 L 10/07/19 11:31 Pulse Ox 96 10/07/19 12:27 Weight - Most Recent: 87.09 kg I&O - Last 24 Hours: Intake & Output 10/06/19 10/07/19 10/07/19 22:59 06:59 14:59 Intake Total 1146 1216 415 Output Total 310 942 350 Balance 836 274 65 Lab Results Last 24 Hours: Laboratory Results - last 24 hr 10/07/19 10/07/19 Range/Units 04:00 04:00 WBC 14.5 H (4.5-11.0) K/uL RBC 3.79 (3.30-5.50) M/uL Hgb 9.7 L (12.0-15.0) g/dL Hct 32.3 L (36.0-48.0) % MCV 85 (80-98) fL MCH 26 L (27-31) pg MCHC 30 L (32-36) % Plt Count 276 (150-400) K/uL Sodium 135 L (140-148) mmol/L Potassium 3.8 (3.6-5.2) mmol/L Chloride 100 (100-108) mmol/L Carbon Dioxide 27 (21-32) mmol/L Anion Gap 11.8 (5.0-14.0) mmol/L BUN 25 H (7-18) mg/dL Creatinine 1.6 H (0.6-1.0) mg/dL Est Cr Clr Drug Dosing 27.44 mL/min Estimated GFR (MDRD) 32 L (>60) Glucose 109 H (74-106) mg/dL Calcium 8.3 L (8.5-10.1) mg/dL Phosphorus 3.5 (2.5-4.9) mg/dL Total Bilirubin 0.6 (0.2-1.0) mg/dL AST 80 H (15-37) U/L ALT 64 (12-78) U/L Alkaline Phosphatase 77 (46-116) U/L NT-Pro-B Natriuret Pep 545 H (5-125) pg/mL Total Protein 6.1 L (6.4-8.2) g/dL Albumin 2.5 L (3.4-5.0) g/dL Globulin 3.6 H (2.3-3.5) g/dL Albumin/Globulin Ratio 0.7 L (1.2-2.2) Med Orders - Current: Current Medications Acetaminophen (Tylenol) 650 mg PO Q6H [facility] Last Admin: 10/07/19 08:34 Dose: 650 mg Albuterol/Ipratropium (Duoneb 3.0-0.5 Mg/3 Ml) 3 ml INH ASDIRECTED PRN PRN Reason: BREATHING Albuterol/Ipratropium (Duoneb 3.0-0.5 Mg/3 Ml) 3 ml INH QIDRT [facility] Last Admin: 10/07/19 10:48 Dose: 3 ml Alogliptin Benzoate (Alogliptin) 6.25 mg PO DAILY [facility] Last Admin: 10/07/19 08:37 Dose: 6.25 mg Amlodipine Besylate (Norvasc) 10 mg PO DAILY [facility] Last Admin: 10/07/19 08:37 Dose: 10 mg Aspirin (Halfprin) 81 mg PO DAILY [facility] Last Admin: 10/07/19 08:37 Dose: 81 mg Celecoxib (Celebrex) 200 mg PO DAILY@1999 [facility] Last Admin: 10/06/19 19:21 Dose: 200 mg Clobetasol Propionate (Clobetasol 0.05%) 0 gm TOP BID [facility] Last Admin: 10/07/19 11:34 Dose: Not Given Cyclobenzaprine HCl (Flexeril) 5 mg PO TID PRN PRN Reason: Muscle Spasm Dextrose/Water (Dextrose 50% In Water) 50 ml IVPUSH ONETIME PRN PRN Reason: ACCUCHECK LESS THAN 70 Diphenhydramine HCl (Benadryl) 50 mg IVPUSH Q4H PRN PRN Reason: ITCHING Last Admin: 10/06/19 19:18 Dose: 50 mg Glucagon (Glucagen) 1 mg IM ONETIME PRN PRN Reason: ACCUCHECK LESS THAN 70 Heparin Sodium (Porcine) (Heparin Sodium) 5,000 units SUBCUT Q12H [facility] Last Admin: 10/07/19 10:26 Dose: 5,000 units Hydromorphone HCl (Dilaudid) 2 - 4 mg PO Q4H PRN PRN Reason: Pain Last Admin: 10/07/19 08:34 Dose: 2 mg Hydroxyzine HCl (Vistaril) 100 mg IM Q4H PRN PRN Reason: pain Last Admin: 10/05/19 19:00 Dose: 100 mg Cefoxitin Sodium 2 gm/ Sodium (Chloride) 50 mls @ 100 mls/hr IV Q6H [facility] Stop: 10/07/19 15:29 Last Admin: 10/07/19 08:47 Dose: 100 mls/hr Magnesium Sulfate 2 gm/ Premix 50 mls @ 25 mls/hr IV Q6H [facility] Stop: 10/09/19 05:59 Last Admin: 10/07/19 10:25 Dose: 25 mls/hr Lactated Ringer's (Ringers, Lactated) 1,000 mls @ 100 mls/hr IV ASDIRECTED [facility] Last Admin: 10/07/19 08:45 Dose: 100 mls/hr Multivitamins/Minerals 10 ml/Thiamine HCl 200 mg/ Chromium/Copper/Manganese/ Seleni/Zn 1 ml/ Lactated Ringer's 1,013 mls @ 100 mls/hr IV DAILY@1600 [facility] Insulin Glargine (Lantus Solostar) 10 units SUBCUT BEDTIME [facility] Last Admin: 10/06/19 21:53 Dose: 10 unit Insulin Human Lispro (Humalog) 0 unit SUBCUT Q6H [facility]; Protocol Last Admin: 10/07/19 10:26 Dose: Not Given Labetalol HCl (Normodyne) 5 mg IVPUSH Q5M PRN PRN Reason: SBP over 160 OR DBP over 95 Lisinopril (Prinivil) 40 mg PO DAILY [facility] Last Admin: 10/07/19 08:37 Dose: 40 mg Metoclopramide HCl (Reglan) 10 mg IVPUSH Q6H PRN PRN Reason: NAUSEA NOT CONTROL BY ZOFRAN Metoprolol Succinate (Toprol Xl) 150 mg PO DAILY [facility] Last Admin: 10/07/19 08:38 Dose: 150 mg Metronidazole (Metronidazole 0.75% Gel) 0 gm TOP BID [facility] Last Admin: 10/07/19 11:35 Dose: Not Given Ondansetron HCl (Zofran) 4 mg IVPUSH Q4H PRN PRN Reason: Nausea/Vomiting Ondansetron HCl (Zofran Odt) 4 mg PO Q4H PRN PRN Reason: Nausea/Vomiting Pantoprazole Sodium (Protonix Granules) 40 mg PO Q24H [facility] Last Admin: 10/06/19 21:12 Dose: 40 mg Sertraline HCl (Zoloft) 100 mg PO DAILY [facility] Last Admin: 10/07/19 08:39 Dose: 100 mg Discontinued Medications Acetaminophen (Tylenol Extra Strength) 1,000 mg PO ONETIME ONE Stop: 10/05/19 10:16 Last Admin: 10/05/19 19:59 Dose: Not Given Acetaminophen (Tylenol Jr. Meltaways) 640 mg PO Q6H [facility] Last Admin: 10/06/19 01:42 Dose: Not Given Albuterol (Proventil Neb Soln) 2.5 mg INH QIDRT [facility] Last Admin: 10/06/19 07:07 Dose: 2.5 mg Bupivacaine HCl (Marcaine 0.5%) Confirm Administered Dose 50 ml .ROUTE .STK-MED ONE Stop: 10/05/19 06:42 Celecoxib (Celebrex) 200 mg PO ONETIME ONE Stop: 10/05/19 10:16 Last Admin: 10/05/19 19:58 Dose: Not Given Ropivacaine 45 ml/Dexamethasone 8 mg/Epinephrine HCl 0.4 mg/ Sodium Chloride 32.6 ml 0 ml NERVRT ASDIRECTED [facility] Last Admin: 10/05/19 12:52 Dose: 80 syringe Cyanocobalamin (Vitamin B12) 1,000 mcg IM ONETIME ONE Stop: 10/07/19 09:01 Last Admin: 10/07/19 08:39 Dose: 1,000 mcg Fentanyl (Sublimaze) Confirm Administered Dose 250 mcg .ROUTE .STK-MED ONE Stop: 10/05/19 11:37 Fentanyl (Sublimaze) Confirm Administered Dose 250 mcg .ROUTE .STK-MED ONE Stop: 10/05/19 15:06 Gabapentin (Neurontin) 300 mg PO ONETIME ONE Stop: 10/05/19 10:16 Last Admin: 10/05/19 19:58 Dose: Not Given Gabapentin (Neurontin) 300 mg PO TID [facility] Last Admin: 10/05/19 21:15 Dose: 300 mg Glycopyrrolate (Robinul) Confirm Administered Dose 1 mg .ROUTE .STK-MED ONE Stop: 10/05/19 11:37 Hydromorphone HCl (Dilaudid Vessel Welder 15 Mg In Ns 30 Ml) 0 mg IV ASDIRECTED PRN; Protocol PRN Reason: OBSTETRICAL NURSE PAIN CONTROL Last Admin: 10/05/19 19:57 Dose: 15 mg Hydroxyzine HCl (Vistaril) Confirm Administered Dose 100 mg .ROUTE .STK-MED ONE Stop: 10/05/19 18:53 Last Admin: 10/05/19 19:28 Dose: Not Given Lidocaine HCl/Dextrose (Lidocaine 2 Gm/D5w 500 Ml) 2 gm in 500 mls @ 15 mls/hr IV .Q24H [facility] Stop: 10/06/19 15:00 Last Admin: 10/05/19 18:27 Dose: 1 mg/min, 15 mls/hr Ketamine HCl 50 mg/ Sodium (Chloride) 50 mls @ 15.6 mls/hr IV ASDIRECTED [facility] Cefoxitin Sodium 2 gm/ Sodium (Chloride) 50 mls @ 100 mls/hr IV ONCALL ONE Stop: 10/05/19 12:14 Last Admin: 10/05/19 18:40 Dose: Not Given Linezolid (Zyvox) Confirm Administered Dose 300 mls @ as directed .ROUTE .STK- MED ONE Stop: 10/05/19 06:42 Dextrose/Lactated Ringer's (Dextrose 5%-Lactated Ringers) 1,000 mls @ 100 mls/ hr IV ASDIRECTED [facility] Last Admin: 10/05/19 10:42 Dose: 100 mls/hr Lactated Ringer's (Ringers, Lactated) Confirm Administered Dose 1,000 mls @ as directed .ROUTE .STK-MED ONE Stop: 10/05/19 16:08 Cefoxitin Sodium 2 gm/ Sodium (Chloride) 50 mls @ 100 mls/hr IV Q6H [facility] Stop: 10/07/19 12:29 Last Admin: 10/05/19 21:37 Dose: 100 mls/hr Dextrose/Lactated Ringer's (Dextrose 5%-Lactated Ringers) 1,000 mls @ 75 mls/ hr IV ASDIRECTED [facility] Last Admin: 10/05/19 21:39 Dose: 75 mls/hr Multivitamins/Minerals 10 ml/Thiamine HCl 200 mg/ Chromium/Copper/Manganese/ Seleni/Zn 1 ml/ Dextrose/Lactated Ringer's 1,013 mls @ 174.999 mls/hr IV DAILY@ 1600 [facility] Lactated Ringer's (Ringers, Lactated) 1,000 mls @ 100 mls/hr IV ASDIRECTED [facility] Last Admin: 10/05/19 22:44 Dose: 100 mls/hr Lactated Ringer's (Ringers, Lactated) 1,000 mls @ 175 mls/hr IV ASDIRECTED [facility] Stop: 10/06/19 11:59 Last Admin: 10/06/19 08:03 Dose: 175 mls/hr Lactated Ringer's (Ringers, Lactated) 1,000 mls @ 125 mls/hr IV ASDIRECTED [facility] Last Admin: 10/06/19 22:03 Dose: 125 mls/hr Multivitamins/Minerals 10 ml/Thiamine HCl 200 mg/ Chromium/Copper/Manganese/ Seleni/Zn 1 ml/ Lactated Ringer's 1,013 mls @ 125 mls/hr IV DAILY@1200 [facility] Last Admin: 10/06/19 12:37 Dose: 125 mls/hr Lactated Ringer's (Ringers, Lactated) 500 mls @ 500 mls/hr IV .BOLUS ONE Stop: 10/06/19 16:14 Last Admin: 10/06/19 15:24 Dose: 500 mls/hr Influenza Virus Vaccine (Fluzone High-Dose 2019-20 Syringe) 180 mcg IM .ONCE ONE Stop: 10/07/19 10:01 Last Admin: 10/07/19 10:50 Dose: 180 mcg Insulin Glargine (Lantus Solostar) 15 units SUBCUT ONETIME ONE Stop: 10/06/19 08:31 Last Admin: 10/06/19 08:39 Dose: 15 unit Insulin Human Lispro (Humalog) 5 unit SUBCUT ONETIME ONE Stop: 10/05/19 17:42 Last Admin: 10/05/19 22:18 Dose: Not Given Insulin Human Lispro (Humalog) Confirm Administered Dose 300 unit SUBCUT .STK- MED ONE Stop: 10/05/19 17:47 Last Admin: 10/05/19 17:52 Dose: 5 units Insulin Human Lispro (Humalog) 0 unit SUBCUT Q6H [facility]; Protocol Last Admin: 10/05/19 21:24 Dose: Not Given Iopamidol (Isovue-300 (61%)) 50 ml PO ASDIRECTED [facility] Stop: 10/06/19 01:23 Last Admin: 10/06/19 05:03 Dose: 50 ml Ketamine HCl (Ketalar) 26 mg IV ASDIRECTED [facility] Lidocaine HCl (Xylocaine 2%) 100 mg IVPUSH ASDIRECTED [facility] Lidocaine/Epinephrine (Xylocaine 1% With Epinephrine 1:100,000) Confirm Administered Dose 50 ml .ROUTE .STK-MED ONE Stop: 10/05/19 06:42 Meropenem (Merrem) Confirm Administered Dose 500 mg .ROUTE .STK-MED ONE Stop: 10/05/19 06:42 Last Admin: 10/05/19 15:23 Dose: 500 mg Metformin HCl (Riomet) 1,000 mg PO BIDMEALS [facility] Metoprolol Succinate (Toprol Xl) 150 mg PO DAILY [facility] Miscellaneous Information (Remove Patch) 1 ea TRDERM ONETIME ONE Stop: 10/07/19 10:01 Naloxone HCl (Narcan) 0.1 mg IV ASDIRECTED PRN PRN Reason: decreased respiratory rate Neostigmine Methylsulfate (Neostigmine) Confirm Administered Dose 5 mg .ROUTE .STK-MED ONE Stop: 10/05/19 11:37 Scopolamine Patch (Check) 1 each TOP DAILY@1000 [facility] Stop: 10/07/19 10:01 Last Admin: 10/07/19 09:02 Dose: Not Given Ondansetron HCl (Zofran) Confirm Administered Dose 4 mg .ROUTE .STK-MED ONE Stop: 10/05/19 11:37 Ondansetron HCl (Zofran) Confirm Administered Dose 4 mg .ROUTE .STK-MED ONE Stop: 10/05/19 14:16 Pantoprazole Sodium (Protonix Iv) 40 mg IVPUSH Q24H [facility] Last Admin: 10/05/19 20:47 Dose: 40 mg Propofol (Diprivan 20 Ml) Confirm Administered Dose 200 mg .ROUTE .STK-MED ONE Stop: 10/05/19 11:37 Rocuronium [place] (Zemuron) Confirm Administered Dose 50 mg .ROUTE .STK-MED ONE Stop: 10/05/19 11:37 Rocuronium [place] (Zemuron) Confirm Administered Dose 50 mg .ROUTE .STK-MED ONE Stop: 10/05/19 15:06 Scopolamine (Transderm-Scop) 1.5 mg TOP Q72H [facility] Stop: 10/07/19 10:00 Last Admin: 10/05/19 10:42 Dose: 1.5 mg Succinylcholine Chloride (Quelicin) Confirm Administered Dose 200 mg .ROUTE .STK -MED ONE Stop: 10/05/19 11:37 - Exam General: Alert, Cooperative, No Acute Distress Lungs: Normal Respiratory Effort Skin: Warm, Dry, Intact Wound/Incisions: Dressing Dry and Intact Psy/Mental Status: Alert, Normal Affect, Normal Mood Sepsis Event Note - Evaluation Sepsis Screening Result: No Definite Risk - Focused Exam Vital Signs: Vital Signs Temp Pulse Pulse Resp BP BP Pulse Ox 10/07/19 12:27 96 10/07/19 11:31 36.6 C 68 10 L 100/56 L 96 10/07/19 10:48 62 10/07/19 08:38 73 135/61 10/07/19 08:37 135/61 10/07/19 07:54 36.3 C 73 16 130/61 97 10/07/19 07:31 79 93 L 10/07/19 01:57 36.4 C 75 18 111/87 97 10/07/19 01:06 100 Pulse Ox Pulse Ox 10/07/19 12:27 10/07/19 11:31 10/07/19 10:48 92 L 10/07/19 08:38 10/07/19 08:37 10/07/19 07:54 10/07/19 07:31 90 L 10/07/19 01:57 10/07/19 01:06 Date Exam was Performed: 10/08/19 Time Exam was Performed: 10:37 - Problem List Review Problem List Initiated/Reviewed/Updated: No - Assessment Assessment:: 74-year-old female postoperative day 2 after esophagogastrectomy with Audrey-en-y esophagojejunostomy and liver resection and revision small bowel anatomy. Continues recovering well, continues to have good pain control after discontinuing OBSTETRICAL NURSE pain med yesterday, had 1 Dilaudid this morning. Creatinine remains elevated but has decreased to 1.6 (yesterday 1.9), BNP also continues decreasing. VITALIY drains draining well serosanguineous fluid. - Plan Plan:: Continuing Lantus 10 units subcutaneous at bedtime, liquid metformin 100 mg twice daily, blood glucose monitoring. Change LR IV to 100 ml/h. Discontinue Wade catheter. Morning labs tomorrow. Diet: continuing step 2, no solids.
[2019-10-07] MEDS ORDERED: MVI, Adult with Vitamin K 10 ML, Thiamine 200 MG, Chromium/Copper/Mang/Selen/Zn 1 ML in... IV SCH ×4 (16:00)
[2019-10-07] MEDS: Pantoprazole 40 MG Delayed-Release Granules 1 Packet PO SCH (20:24)
[2019-10-07] MEDS: Celecoxib 200 MG Cap PO SCH (20:24)
[2019-10-07] MEDS: Magnesium Oxide 400 MG Tab PO SCH (20:24)
[2019-10-07] MEDS: Insulin Glargine,Human Rec. Analog 100 Units/ML 3 ML Pen SUBCUT SCH (22:28)
[2019-10-08] MEDS: Acetaminophen Soln 650 MG/20.3 ML UD Cup PO SCH ×4 (02:56→20:53)
[2019-10-08] MEDS: Insulin Lispro 100 Unit/ML 3 ML KwikPen SUBCUT SCH ×4 (05:01→22:22)
[2019-10-08] MEDS: Albuterol/Ipratropium 3.0-0.5 MG/3 ML Neb Soln INH SCH ×4 (07:45→21:15)
--- NOTE | 2019-10-08 08:17 | PCM.PN ---
- General Info Date of Service: 10/08/19 Functional Status: Reports: Pain Controlled - Review of Systems General: Reports: No Symptoms HEENT: Reports: No Symptoms Pulmonary: Reports: No Symptoms Cardiovascular: Reports: No Symptoms Gastrointestinal: Reports: No Symptoms Genitourinary: Reports: No Symptoms Musculoskeletal: Reports: No Symptoms Skin: Reports: No Symptoms Neurological: Reports: No Symptoms Psychiatric: Reports: No Symptoms - Patient Data Vitals - Most Recent: Last Vital Signs Temp 36.8 C 10/08/19 07:00 Pulse 79 10/08/19 07:46 Resp 18 10/08/19 07:00 BP 127/66 10/08/19 07:00 Pulse Ox 97 10/08/19 07:46 Weight - Most Recent: 87.09 kg I&O - Last 24 Hours: Intake & Output 10/07/19 10/08/19 10/08/19 22:59 06:59 14:59 Intake Total 1100 360 Output Total 350 640 300 Balance 750 -280 -300 Lab Results Last 24 Hours: Laboratory Results - last 24 hr 10/08/19 10/08/19 Range/Units 04:10 04:10 WBC 13.0 H (4.5-11.0) K/uL RBC 3.80 (3.30-5.50) M/uL Hgb 9.8 L (12.0-15.0) g/dL Hct 32.0 L (36.0-48.0) % MCV 84 (80-98) fL MCH 26 L (27-31) pg MCHC 31 L (32-36) % Plt Count 304 (150-400) K/uL Sodium 136 L (140-148) mmol/L Potassium 3.8 (3.6-5.2) mmol/L Chloride 102 (100-108) mmol/L Carbon Dioxide 27 (21-32) mmol/L Anion Gap 10.8 (5.0-14.0) mmol/L BUN 26 H (7-18) mg/dL Creatinine 1.2 H (0.6-1.0) mg/dL Est Cr Clr Drug Dosing 36.59 mL/min Estimated GFR (MDRD) 44 L (>60) Glucose 145 H (74-106) mg/dL Calcium 8.5 (8.5-10.1) mg/dL Phosphorus 3.4 (2.5-4.9) mg/dL Total Bilirubin 0.6 (0.2-1.0) mg/dL AST 57 H (15-37) U/L ALT 64 (12-78) U/L Alkaline Phosphatase 135 H D (46-116) U/L NT-Pro-B Natriuret Pep 1192 H (5-125) pg/mL Total Protein 6.5 (6.4-8.2) g/dL Albumin 2.4 L (3.4-5.0) g/dL Globulin 4.1 H (2.3-3.5) g/dL Albumin/Globulin Ratio 0.6 L (1.2-2.2) Med Orders - Current: Current Medications Acetaminophen (Tylenol) 650 mg PO Q6H [facility] Last Admin: 10/08/19 02:56 Dose: 650 mg Albuterol/Ipratropium (Duoneb 3.0-0.5 Mg/3 Ml) 3 ml INH ASDIRECTED PRN PRN Reason: BREATHING Albuterol/Ipratropium (Duoneb 3.0-0.5 Mg/3 Ml) 3 ml INH QIDRT [facility] Last Admin: 10/08/19 07:45 Dose: 3 ml Alogliptin Benzoate (Alogliptin) 6.25 mg PO DAILY [facility] Last Admin: 10/07/19 08:37 Dose: 6.25 mg Amlodipine Besylate (Norvasc) 10 mg PO DAILY [facility] Last Admin: 10/07/19 08:37 Dose: 10 mg Aspirin (Halfprin) 81 mg PO DAILY [facility] Last Admin: 10/07/19 08:37 Dose: 81 mg Celecoxib (Celebrex) 200 mg PO DAILY@1999 [facility] Last Admin: 10/07/19 20:24 Dose: 200 mg Clobetasol Propionate (Clobetasol 0.05%) 0 gm TOP BID [facility] Last Admin: 10/07/19 20:24 Dose: 1 applic Cyclobenzaprine HCl (Flexeril) 5 mg PO TID PRN PRN Reason: Muscle Spasm Glucagon (Glucagen) 1 mg IM ONETIME PRN PRN Reason: ACCUCHECK LESS THAN 70 Heparin Sodium (Porcine) (Heparin Sodium) 5,000 units SUBCUT Q12H [facility] Last Admin: 10/07/19 22:30 Dose: 5,000 units Hydromorphone HCl (Dilaudid) 2 - 4 mg PO Q4H PRN PRN Reason: Pain Last Admin: 10/07/19 08:34 Dose: 2 mg Hydroxyzine HCl (Vistaril) 100 mg IM Q4H PRN PRN Reason: pain Last Admin: 10/05/19 19:00 Dose: 100 mg Insulin Human Lispro (Humalog) 0 unit SUBCUT Q6H [facility]; Protocol Last Admin: 10/08/19 05:01 Dose: Not Given Lisinopril (Prinivil) 40 mg PO DAILY [facility] Last Admin: 10/07/19 08:37 Dose: 40 mg Magnesium Hydroxide (Milk Of Magnesia) 30 ml PO ONETIME ONE Stop: 10/08/19 09:01 Magnesium Oxide (Magnesium Oxide) 400 mg PO BID [facility] Last Admin: 10/07/19 20:24 Dose: 400 mg Metoprolol Succinate (Toprol Xl) 150 mg PO DAILY [facility] Last Admin: 10/07/19 08:38 Dose: 150 mg Metronidazole (Metronidazole 0.75% Gel) 0 gm TOP BID [facility] Last Admin: 10/07/19 20:26 Dose: 1 dose Ondansetron HCl (Zofran Odt) 4 mg PO Q4H PRN PRN Reason: Nausea/Vomiting Pantoprazole Sodium (Protonix Granules) 40 mg PO Q24H [facility] Last Admin: 10/07/19 20:24 Dose: 40 mg Sertraline HCl (Zoloft) 100 mg PO DAILY [facility] Last Admin: 10/07/19 08:39 Dose: 100 mg Discontinued Medications Acetaminophen (Tylenol Extra Strength) 1,000 mg PO ONETIME ONE Stop: 10/05/19 10:16 Last Admin: 10/05/19 19:59 Dose: Not Given Acetaminophen (Tylenol Jr. Meltaways) 640 mg PO Q6H [facility] Last Admin: 10/06/19 01:42 Dose: Not Given Albuterol (Proventil Neb Soln) 2.5 mg INH QIDRT [facility] Last Admin: 10/06/19 07:07 Dose: 2.5 mg Bupivacaine HCl (Marcaine 0.5%) Confirm Administered Dose 50 ml .ROUTE .STK-MED ONE Stop: 10/05/19 06:42 Celecoxib (Celebrex) 200 mg PO ONETIME ONE Stop: 10/05/19 10:16 Last Admin: 10/05/19 19:58 Dose: Not Given Ropivacaine 45 ml/Dexamethasone 8 mg/Epinephrine HCl 0.4 mg/ Sodium Chloride 32.6 ml 0 ml NERVRT ASDIRECTED [facility] Last Admin: 10/05/19 12:52 Dose: 80 syringe Cyanocobalamin (Vitamin B12) 1,000 mcg IM ONETIME ONE Stop: 10/07/19 09:01 Last Admin: 10/07/19 08:39 Dose: 1,000 mcg Dextrose/Water (Dextrose 50% In Water) 50 ml IVPUSH ONETIME PRN PRN Reason: ACCUCHECK LESS THAN 70 Diphenhydramine HCl (Benadryl) 50 mg IVPUSH Q4H PRN PRN Reason: ITCHING Last Admin: 10/06/19 19:18 Dose: 50 mg Fentanyl (Sublimaze) Confirm Administered Dose 250 mcg .ROUTE .STK-MED ONE Stop: 10/05/19 11:37 Fentanyl (Sublimaze) Confirm Administered Dose 250 mcg .ROUTE .STK-MED ONE Stop: 10/05/19 15:06 Gabapentin (Neurontin) 300 mg PO ONETIME ONE Stop: 10/05/19 10:16 Last Admin: 10/05/19 19:58 Dose: Not Given Gabapentin (Neurontin) 300 mg PO TID [facility] Last Admin: 10/05/19 21:15 Dose: 300 mg Glycopyrrolate (Robinul) Confirm Administered Dose 1 mg .ROUTE .STK-MED ONE Stop: 10/05/19 11:37 Hydromorphone HCl (Dilaudid [employer] 15 Mg In Ns 30 Ml) 0 mg IV ASDIRECTED PRN; Protocol PRN Reason: [employer] PAIN CONTROL Last Admin: 10/05/19 19:57 Dose: 15 mg Hydroxyzine HCl (Vistaril) Confirm Administered Dose 100 mg .ROUTE .STK-MED ONE Stop: 10/05/19 18:53 Last Admin: 10/05/19 19:28 Dose: Not Given Lidocaine HCl/Dextrose (Lidocaine 2 Gm/D5w 500 Ml) 2 gm in 500 mls @ 15 mls/hr IV .Q24H [facility] Stop: 10/06/19 15:00 Last Admin: 10/05/19 18:27 Dose: 1 mg/min, 15 mls/hr Ketamine HCl 50 mg/ Sodium (Chloride) 50 mls @ 15.6 mls/hr IV ASDIRECTED [facility] Cefoxitin Sodium 2 gm/ Sodium (Chloride) 50 mls @ 100 mls/hr IV ONCALL ONE Stop: 10/05/19 12:14 Last Admin: 10/05/19 18:40 Dose: Not Given Linezolid (Zyvox) Confirm Administered Dose 300 mls @ as directed .ROUTE .[facility] ONE Stop: 10/05/19 06:42 Dextrose/Lactated Ringer's (Dextrose 5%-Lactated Ringers) 1,000 mls @ 100 mls/ hr IV ASDIRECTED [facility] Last Admin: 10/05/19 10:42 Dose: 100 mls/hr Lactated Ringer's (Ringers, Lactated) Confirm Administered Dose 1,000 mls @ as directed .ROUTE .[facility] ONE Stop: 10/05/19 16:08 Cefoxitin Sodium 2 gm/ Sodium (Chloride) 50 mls @ 100 mls/hr IV Q6H [facility] Stop: 10/07/19 12:29 Last Admin: 10/05/19 21:37 Dose: 100 mls/hr Dextrose/Lactated Ringer's (Dextrose 5%-Lactated Ringers) 1,000 mls @ 75 mls/ hr IV ASDIRECTED [facility] Last Admin: 10/05/19 21:39 Dose: 75 mls/hr Multivitamins/Minerals 10 ml/Thiamine HCl 200 mg/ Chromium/Copper/Manganese/ Seleni/Zn 1 ml/ Dextrose/Lactated Ringer's 1,013 mls @ 174.999 mls/hr IV DAILY@ 1600 [facility] Lactated Ringer's (Ringers, Lactated) 1,000 mls @ 100 mls/hr IV ASDIRECTED [facility] Last Admin: 10/05/19 22:44 Dose: 100 mls/hr Cefoxitin Sodium 2 gm/ Sodium (Chloride) 50 mls @ 100 mls/hr IV Q6H [facility] Stop: 10/07/19 15:29 Last Admin: 10/07/19 08:47 Dose: 100 mls/hr Lactated Ringer's (Ringers, Lactated) 1,000 mls @ [facility] Stop: 10/06/19 11:59 Last Admin: 10/06/19 08:03 Dose: 175 mls/hr Magnesium Sulfate 2 gm/ Premix 50 mls @ 25 mls/hr IV Q6H [facility] Stop: 10/09/19 05:59 Last Admin: 10/07/19 10:25 Dose: 25 mls/hr Lactated Ringer's (Ringers, Lactated) 1,000 mls @ 125 mls/hr IV ASDIRECTED [facility] Last Admin: 10/06/19 22:03 Dose: 125 mls/hr Multivitamins/Minerals 10 ml/Thiamine HCl 200 mg/ Chromium/Copper/Manganese/ Seleni/Zn 1 ml/ Lactated Ringer's 1,013 mls @ 125 mls/hr IV DAILY@1200 [facility] Last Admin: 10/06/19 12:37 Dose: 125 mls/hr Lactated Ringer's (Ringers, Lactated) 500 mls @ 500 mls/hr IV .BOLUS ONE Stop: 10/06/19 16:14 Last Admin: 10/06/19 15:24 Dose: 500 mls/hr Lactated Ringer's (Ringers, Lactated) 1,000 mls @ 100 mls/hr IV ASDIRECTED [facility] Last Admin: 10/07/19 08:45 Dose: 100 mls/hr Multivitamins/Minerals 10 ml/Thiamine HCl 200 mg/ Chromium/Copper/Manganese/ Seleni/Zn 1 ml/ Lactated Ringer's 1,013 mls @ 100 mls/hr IV DAILY@1600 [facility] Influenza Virus Vaccine (Fluzone High-Dose 2019-20 Syringe) 180 mcg IM .ONCE ONE Stop: 10/07/19 10:01 Last Admin: 10/07/19 10:50 Dose: 180 mcg Insulin Glargine (Lantus Solostar) 15 units SUBCUT ONETIME ONE Stop: 10/06/19 08:31 Last Admin: 10/06/19 08:39 Dose: 15 unit Insulin Glargine (Lantus Solostar) 10 units SUBCUT BEDTIME [facility] Last Admin: 10/07/19 22:28 Dose: 10 unit Insulin Human Lispro (Humalog) 5 unit SUBCUT ONETIME ONE Stop: 10/05/19 17:42 Last Admin: 10/05/19 22:18 Dose: Not Given Insulin Human Lispro (Humalog) Confirm Administered Dose 300 unit SUBCUT .STK- MED ONE Stop: 10/05/19 17:47 Last Admin: 10/05/19 17:52 Dose: 5 units Insulin Human Lispro (Humalog) 0 unit SUBCUT Q6H [facility]; Protocol Last Admin: 10/05/19 21:24 Dose: Not Given Iopamidol (Isovue-300 (61%)) 50 ml PO ASDIRECTED [facility] Stop: 10/06/19 01:23 Last Admin: 10/06/19 05:03 Dose: 50 ml Ketamine HCl (Ketalar) 26 mg IV ASDIRECTED [facility] Labetalol HCl (Normodyne) 5 mg IVPUSH Q5M PRN PRN Reason: SBP over 160 OR DBP over 95 Lidocaine HCl (Xylocaine 2%) 100 mg IVPUSH ASDIRECTED [facility] Lidocaine/Epinephrine (Xylocaine 1% With Epinephrine 1:100,000) Confirm Administered Dose 50 ml .ROUTE .STK-MED ONE Stop: 10/05/19 06:42 Meropenem (Merrem) Confirm Administered Dose 500 mg .ROUTE .STK-MED ONE Stop: 10/05/19 06:42 Last Admin: 10/05/19 15:23 Dose: 500 mg Metformin HCl (Riomet) 1,000 mg PO BIDMEALS [facility] Metoclopramide HCl (Reglan) 10 mg IVPUSH Q6H PRN PRN Reason: NAUSEA NOT CONTROL BY ZOFRAN Metoprolol Succinate (Toprol Xl) 150 mg PO DAILY [facility] Miscellaneous Information (Remove Patch) 1 ea TRDERM ONETIME ONE Stop: 10/07/19 10:01 Naloxone HCl (Narcan) 0.1 mg IV ASDIRECTED PRN PRN Reason: decreased respiratory rate Neostigmine Methylsulfate (Neostigmine) Confirm Administered Dose 5 mg .ROUTE .STK-MED ONE Stop: 10/05/19 11:37 Scopolamine Patch (Check) 1 each TOP DAILY@1000 [facility] Stop: 10/07/19 10:01 Last Admin: 10/07/19 09:02 Dose: Not Given Ondansetron HCl (Zofran) Confirm Administered Dose 4 mg .ROUTE .STK-MED ONE Stop: 10/05/19 11:37 Ondansetron HCl (Zofran) Confirm Administered Dose 4 mg .ROUTE .STK-MED ONE Stop: 10/05/19 14:16 Ondansetron HCl (Zofran) 4 mg IVPUSH Q4H PRN PRN Reason: Nausea/Vomiting Pantoprazole Sodium (Protonix Iv) 40 mg IVPUSH Q24H [facility] Last Admin: 10/05/19 20:47 Dose: 40 mg Propofol (Diprivan 20 Ml) Confirm Administered Dose 200 mg .ROUTE .STK-MED ONE Stop: 10/05/19 11:37 Rocuronium [place] (Zemuron) Confirm Administered Dose 50 mg .ROUTE .STK-MED ONE Stop: 10/05/19 11:37 Rocuronium [place] (Zemuron) Confirm Administered Dose 50 mg .ROUTE .STK-MED ONE Stop: 10/05/19 15:06 Scopolamine (Transderm-Scop) 1.5 mg TOP Q72H [facility] Stop: 10/07/19 10:00 Last Admin: 10/05/19 10:42 Dose: 1.5 mg Succinylcholine Chloride (Quelicin) Confirm Administered Dose 200 mg .ROUTE .STK -MED ONE Stop: 10/05/19 11:37 - Exam General: Alert, Oriented, Cooperative, No Acute Distress Neck: +2 Carotid Pulse wo Bruit Lungs: Normal Respiratory Effort Skin: Warm, Dry, Intact Wound/Incisions: Dressing Dry and Intact Psy/Mental Status: Alert, Normal Affect, Normal Mood Sepsis Event Note - Evaluation Sepsis Screening Result: No Definite Risk - Focused Exam Vital Signs: Vital Signs Temp Pulse Resp BP BP Pulse Ox Pulse Ox 10/08/19 07:46 79 97 10/08/19 07:00 36.8 C 82 18 127/66 95 10/08/19 02:54 37.1 C 80 18 106/61 90 L 10/07/19 22:49 36.7 C 77 18 123/59 L 91 L Date Exam was Performed: 10/08/19 Time Exam was Performed: 11:16 - Problem List Review Problem List Initiated/Reviewed/Updated: No - Assessment Assessment:: 74-year-old female postoperative day 3 after esophagogastrectomy with Audrey-en-y esophagojejunostomy and liver resection and revision small bowel anatomy. Continues recovering well, continues to have good pain control on Tylenol and Dilaudid, walking, voiding, tolerating diet, passing gas. Creatinine is near baseline after decreasing to 1.2 (two days ago 1.9), BNP was decreasing but is higher today 1192 (yesterday 545). VITALIY drains draining well serosanguineous fluid. - Plan Plan:: Give Lasix 20 mg once now. Start milk of magnesia today. Stop Lantus. Continuing Januvia, liquid metformin 100 mg twice daily, blood glucose monitoring. Continuing LR IV to 100 ml/h. Tomorrow morning labs include: BMP and BNP. Diet: continuing step 2, no solids, for at least two weeks post-op (at least until 10/19/2019).
[2019-10-08] MEDS ORDERED: Magnesium Hydroxide 400 MG/5 ML Susp 30 ML Cup PO ONE (09:00)
[2019-10-08] MEDS: Clobetasol 0.05% Crm 30 GM Tube TOP SCH ×2 (09:54→20:53)
[2019-10-08] MEDS: Aspirin 81 MG Tab.EC PO SCH (09:55)
[2019-10-08] MEDS: Magnesium Oxide 400 MG Tab PO SCH ×2 (09:56→20:54)
[2019-10-08] MEDS: amLODIPine 10 MG Tab PO SCH (09:58)
[2019-10-08] MEDS: Lisinopril 20 MG Tab PO SCH (09:58)
[2019-10-08] MEDS: Metoprolol Succinate 50 MG Tab.ER PO SCH (09:59)
[2019-10-08] MEDS: Sertraline 50 MG Tab PO SCH (09:59)
[2019-10-08] MEDS: Heparin Sodium 5,000 Units/ML Vial SUBCUT SCH ×2 (10:00→21:15)
[2019-10-08] MEDS: HYDROmorphone 2 MG Tab PO PRN ×2 (10:43→17:19)
[2019-10-08] MEDS ORDERED: Furosemide 20 MG/2 ML VIAL IVPUSH ONE (11:08)
[2019-10-08] MEDS ORDERED: Furosemide 20 MG Tab PO ONE ×3 (11:26→17:30)
[2019-10-08] MEDS: Celecoxib 200 MG Cap PO SCH (20:53)
[2019-10-08] MEDS: Pantoprazole 40 MG Delayed-Release Granules 1 Packet PO SCH (20:54)
[2019-10-09] MEDS: Acetaminophen Soln 650 MG/20.3 ML UD Cup PO SCH ×2 (03:27→09:02)
[2019-10-09] MEDS: Insulin Lispro 100 Unit/ML 3 ML KwikPen SUBCUT SCH ×2 (04:30→09:08)
[2019-10-09] MEDS: Albuterol/Ipratropium 3.0-0.5 MG/3 ML Neb Soln INH SCH (07:13)
[2019-10-09] MEDS ORDERED: Furosemide 20 MG Tab PO ONE (07:48)
[2019-10-09] MEDS: Aspirin 81 MG Tab.EC PO SCH (09:04)
[2019-10-09] MEDS: Magnesium Oxide 400 MG Tab PO SCH (09:04)
[2019-10-09] MEDS: amLODIPine 10 MG Tab PO SCH (09:05)
[2019-10-09] MEDS: Lisinopril 20 MG Tab PO SCH (09:05)
[2019-10-09] MEDS: Metoprolol Succinate 50 MG Tab.ER PO SCH (09:06)
[2019-10-09] MEDS: Sertraline 50 MG Tab PO SCH (09:06)
[2019-10-09] MEDS: Heparin Sodium 5,000 Units/ML Vial SUBCUT SCH (09:07)
[2019-10-09] MEDS: Clobetasol 0.05% Crm 30 GM Tube TOP SCH (09:08)
--- NOTE | 2019-10-09 11:13 | DISCH ---
ADMISSION DIAGNOSES: 1. Marginal ulcer. 2. Dysphagia. 3. Status post Audrey-en-Y gastric bypass surgery. 4. Unspecified surgical malabsorption. 5. B12 deficiency. 6. Osteopenia. 7. Mild cognitive impairment. 8. History of cerebrovascular accident. 9. Obstructive sleep apnea. 10.Frequent falls. 11.Essential hypertension. 12.Dyslipidemia. 13.Diabetes, type 2. 14.Major depression. 15.Occipital neuralgia. 16.Tenosynovitis. 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 DISCHARGE DIAGNOSES: Laparotomy with esophagogastrectomy with Audrey-en-Y esophagojejunostomy, open hernia incisional repair and repair of umbilical hernia, small bowel resection, and resection of nodule in proximal small bowel. Date of surgery: 10/05/2019. Surgeon: Glenroy Bernal MD. HISTORY: Julia Hook is a 74-year-old female with mid epigastric abdominal pain, dysphagia, and vomiting. After preoperative evaluation and discussion of possible risks and possible complications, she wished to proceed with surgical procedure. She, in addition to above chief complaints, had an incisional hernia. HOSPITAL COURSE: Julia had her surgery on 10/05/2019. She had no operative complications. On postoperative day #1, her blood sugars were monitored. Her pain was controlled. Her IV was changed to lactated Ringer's. On postoperative day #2, Lantus was discontinued. She was given bowel stimulation, and throughout her hospitalization, blood sugars were continued to be monitored and she was started on Januvia and continued with her metformin. BNP was monitored closely. She was given Lasix. Magnesium on 1st postop day was 1.2. She was continued with IV magnesium. Vital signs, she remained afebrile. Pulse and blood pressure were within normal limits. She did not require oxygen. She was up ambulating independently and received dietary instruction and was able to be discharged to home. PHYSICAL EXAMINATION: GENERAL: Julia Hook is a 74-year-old female. VITAL SIGNS: Height is 5 feet 4 inches, weight is 192 pounds, BMI is 33. TPR 96.6, 85, 16, blood pressure 128/77. HEENT: Negative. NECK: Supple. HEART: Regular rate and rhythm. LUNGS: Clear. ABDOMEN: Stapled incision looks good. She has 3 VITALIY drains, which will be removed prior to discharge. They had been draining 30, 20, and 5 in the past 24 hours of a serosanguineous drainage. 4x4s will be placed over VITALIY drain site. She has not been wearing her abdominal binder as she finds it very uncomfortable. EXTREMITIES: With no peripheral edema. DISPOSITION: Discharged to home. CONDITION: Stable and improving. FOLLOWUP APPOINTMENT: 10/15/2019 at [facility] at 10 a.m. with Lea Ornelas PA-C. HOME MEDICATIONS: 1. Dilaudid 2 mg every 4 hours p.r.n. pain, #42. 2. Zofran 4 mg oral q.4 hours p.r.n. nausea, #30. 3. Januvia 100 mg oral daily, #90. To resume home medications: 1. Albuterol inhaler 2 puffs 4 times a day. 2. Aspirin 81 mg. 3. Clobetasol propionate 0.05%, 30 g topical twice daily. 4. Cyclobenzaprine 5 mg oral 3 times a day p.r.n. muscle spasms. 5. Lisinopril 40 mg oral daily. 6. Magnesium oxide 400 mg oral twice daily. 7. Metoprolol succinate 150 mg oral daily. 8. Protonix 40 mg oral twice daily. 9. Sertraline 100 mg oral daily. 10.Amlodipine besylate 10 mg oral daily. 11.Hydroxyzine 50 mg oral every 8 hours. 12.Metformin 1000 mg oral twice daily. 13.Metrogel 1 applicator twice daily. Discontinue takin. Calcium carbonate. 2. Vitamin D3. 3. Vitamin B12. 4. Basaglar. 5. Levemir. 6. Iron. 7. Lactobacillus. 8. Pravachol. 9. Crestor until after 1st. We will discuss prescription medication, vitamins at first postop appointment. DIET: Drink 8 to 10 glasses of water a day and step 2 gastric bypass diet, no cereal, nothing thicker than milk until November 03, 2019, appointment. ACTIVITY: No lifting greater than 10 pounds for 6 weeks. Other activity: Walk at least 6 times daily inside your home. Shower/bathing: May shower. DISCHARGE INSTRUCTIONS: Notify provider if any fever, increased pain, nausea, or vomiting. Keep site clean and dry. SPECIAL INSTRUCTIONS: Use incentive spirometer 10 times every hour while awake. For every hour in the car or when on the train, get up and walk or stand for 10 minutes. This is for 6 weeks. Wear thigh-high HETAL stockings also to prevent blood clots. Check blood sugars twice daily and as needed.
--- NOTE | 2019-10-14 15:14 | OR ---
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 POSTOPERATIVE DIAGNOSES: 1. 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 2. Dense adhesions to the left lobe of liver resulting in extensive capsular avulsion upon dissected away from the underlying stomach. 3. Nodular lesion on the peritoneal surface of the proximal small bowel. 4. Incarcerated incisional hernia. 5. Umbilical hernia. 6. Segment of small bowel devascularized, status post takedown of adhesions. OPERATIVE PROCEDURES: Exploratory laparotomy with lysis of extensive adhesions and: 1. Esophagogastrectomy with Audrey-en-Y esophagojejunostomy (73312). 2. Partial left hepatic lobectomy (11515). 3. Small bowel resection (04727). 4. Resection of nodular lesion on the peritoneal surface of proximal small bowel (03531). 5. Repair of incarcerated incisional hernia (68066). 6. Repair of non-incarcerated umbilical hernia (43363). ANESTHESIA: General. PUBLIC SPEAKING TEACHER: Lea Ornelas PA-C, and Chu Jasso MS-3. INDICATIONS FOR PROCEDURE: This is a 74-year-old female presenting with marginal ulcer associated with quite a bit in the way of pain and dysphagia due to stricturing resulting from both scar and edema formation. It has been refractory to medical management. Plan is to proceed with resection of the area of the gastric pouch. The exact level of that will be determined intraoperatively, depending on whether or not there is a safe plane of dissection in the proximal stomach versus it needs to be raised up somewhat higher into the esophagus. This would then be reconstructed with Audrey-en-Y anastomosis to the stomach or the esophagus. Potential risks of the procedure including bleeding, infection, leaks from various GI tract closures, as well as possibility of cardiopulmonary, septic, or hemorrhagic complications leading to were all discussed, and the patient wishes to proceed. DETAILS OF PROCEDURE: The patient was taken to the operating room and placed in a supine position. After general endotracheal anesthesia was induced, she was converted to a lithotomy position, a Wade catheter was inserted and the abdomen prepped and draped. A previous upper midline incision was then made and carried down through the skin and subcutaneous tissue. In the upper midline, there was a large incisional hernia present. This was dissected free down the level of fascia. The peritoneal sac was then opened and some incarcerated adhesions within it were then freed up. This contained some omentum, along with some adherence of the transverse colon. Once this was accomplished, the hernia sac was excised. The patient noted to have a separate umbilical hernia present just inferior to the incision, which was then closed at the time of the closure of the fascia. At this point, attention was taken to the area of the previous gastric bypass pouch and gastrojejunostomy. There was intense inflammation between this entire area and the posterior aspect of the left lobe of the liver. As this was dissected free, there was a large area of avulsion present on the surface of the left lobe of the liver, and we decided at that point to resect that portion of the liver, which was accomplished with a series of gerber. This removed roughly half of the volume of segments II and III, and that specimen was then delivered from the field. At this point, we approached the Audrey limb from an infracolic approach. This was retrocolic Audrey limb, and as one dissected upward, we were able to get up to the area around the gastrojejunostomy. As expected, this area was extremely densely inflamed, both chronically and acutely. The dissection gradually allowed stapler division of the stomach and the gastrojejunostomy between the pancreas and the splenic vessels. At that point then, we began dissecting the proximal end of the gastric pouch. The stomach itself was obviously far too densely adherent at this point to safely dissect directly, and the distal esophagus was then encircled and divided with a HAIM black load. The remaining attachments between the area behind the gastric pouch, which included some adhesions that were quite densely affecting the aorta at that level, were divided with combination of both blunt and stapled dissection. The gastric pouch was also adherent densely to the bypassed portion of the stomach, and the exact plane of division between those 2 structures was not clear. Given this, the stomach was divided transversely roughly to mid body with HAIM gerber. The vascular attachments of this, including the areas along the lesser curvature and then the greater curvature up to and through the highest and posterior short gastric vessels were divided with HAIM gerber and the specimen delivered from the field. The small bowel was then examined. The Audrey limb was somewhat deserosalized on its distal aspect and then measuring the Audrey limb at that point, it became evident that the Audrey limb itself was far too short at this point to anastomose to the esophagus. Given this, the Audrey limb was divided flush with the previous jejunojejunostomy and the underlying mesentery to that remaining Audrey limb divided with HAIM gerber as well. At this point, the small bowel was traced out 120 cm distal to the previous jejunojejunostomy, where it was divided. This then was traced out another 120 cm distal to that point, where a [id number] enteroenterostomy was accomplished with internal firing of the Endo HAIM 60 mm stapler. Common opening was closed transversely with the same stapler and the angles anastomosed and mesenteric defect approximated with some 0 Ethibond stitch, along with fibrin sealant. The common limb at this point was measured at 280 cm, which should give the patient a satisfactory length in terms of alimentary tract total length. The anvil of a 25 mm EEA stapler was attached to Jenkinjones sump-type tube, the latter was brought down through the mouth and taken out through a small opening in the divided esophagus. The anvil likewise was pulled down within that area. The newly formed Audrey limb was in retrocolic manner and the main body of the stapler was brought through the open end of the Audrey limb, brought up the anvil and united with it, thus creating esophagojejunostomy. Upon removal of the stapler, double donuts of mucosa were noted within. Small bowel was closed off with a vascular staple line. Of note, the patient had a roughly 3 to 4 mm fairly vascularized nodule on the surface of the small bowel roughly 10 cm distal to the ligament of Treitz. This was excised with transversely oriented HAIM staple line and that specimen delivered from the field. That location was marked with 4-0 Vicryl Prolene stitch roughly 5 cm long in the event that that area needed to be addressed, based on the pathologic findings. The esophagojejunostomy was reinforced with some 3-0 Vicryl seromuscular stitch, along with fibrin sealant. The point where the small bowel passed through the transverse mesocolon was then reinforced with some 3-0 Vicryl stitch as well, and at that point, no further problems were noted intra-abdominally. The abdomen was irrigated with antibiotic-containing saline solution. Two Sandoval-Cadena drains were then placed through the left subcostal area and positioned adjacent to the esophagojejunostomy. The midline fascia was then approximated with a #2 Vicryl stitch. We included closure of both the umbilical and incisional hernias. We did not use mesh in this case due to the open bowel. The subcutaneous tissue was then approximated with layers of 3-0 and 4-0 Vicryl stitch deep and then gerber for the skin. Dressing was applied. The patient was taken to the recovery room in satisfactory condition. There were no evident complications. Physician judicial administrative assistant, Lea Ornelas, played an essential role in assisting in this case, helping to position the patient, retract structures as needed, as well as suturing and cutting sutures when indicated. Her presence improved patient safety and decreased operative time. Glenroy Bernal MD /[id number]
== END 2019-10-09 11:16 | disposition home or self-care (01) | DRG 327 ==
LOC: EDSTATUS 08:30 → JP.MS 09:41 → JP.SDS 09:41 → JP.MS 17:30
PROVIDERS: ADMIT Surgery; ATTEND Surgery
PROC: 0WQF0ZZ Repair Abdominal Wall, Open Approach (ICD-10-PCS; principal; 2019-10-05)
PROC: 0DB30ZZ Excision of Lower Esophagus, Open Approach (ICD-10-PCS; 2019-10-05)
PROC: 0DB80ZZ Excision of Small Intestine, Open Approach (ICD-10-PCS; 2019-10-05)
PROC: 0WQF0ZZ Repair Abdominal Wall, Open Approach (ICD-10-PCS; 2019-10-05)
PROC: 0FB20ZZ Excision of Left Lobe Liver, Open Approach (ICD-10-PCS; 2019-10-05)
PROC: 0DNW0ZZ Release Peritoneum, Open Approach (ICD-10-PCS; 2019-10-05)
PROC: 0DB60ZZ Excision of Stomach, Open Approach (ICD-10-PCS; 2019-10-05)
PROC: 0D150ZA Bypass Esophagus to Jejunum, Open Approach (ICD-10-PCS; 2019-10-05)
DX: K94.13 Enterostomy malfunction (principal); K90.9 Intestinal malabsorption, unspecified; K43.0 Incisional hernia with obstruction, without gangrene; K28.9 Gastrojejunal ulcer, unspecified as acute or chronic, without hemorrhage or perforation; K43.9 Ventral hernia without obstruction or gangrene; E11.9 Type 2 diabetes mellitus without complications; K66.0 Peritoneal adhesions (postprocedural) (postinfection); K42.9 Umbilical hernia without obstruction or gangrene; M06.9 Rheumatoid arthritis, unspecified; M85.80 Other specified disorders of bone density and structure, unspecified site; G31.84 Mild cognitive impairment of uncertain or unknown etiology; G47.33 Obstructive sleep apnea (adult) (pediatric); R29.6 Repeated falls; I10 Essential (primary) hypertension; E78.5 Hyperlipidemia, unspecified; F32.9 Major depressive disorder, single episode, unspecified; M54.81 Occipital neuralgia; G56.01 Carpal tunnel syndrome, right upper limb; M65.9 Synovitis and tenosynovitis, unspecified; R13.10 Dysphagia, unspecified; E53.9 Vitamin B deficiency, unspecified; M12.9 Arthropathy, unspecified; Z79.84 Long term (current) use of oral hypoglycemic drugs; Z86.73 Personal history of transient ischemic attack (TIA), and cerebral infarction without residual deficits; Z88.2 Allergy status to sulfonamides; Z98.84 Bariatric surgery status
CPT/HCPCS: 36415; 74240; 80048; 80053; 82728; 82962; 83735; 83880; 84100; 85025; 85027; 86850; 86900; 86901; 88302; 88307; 88309; 88341; 88342; 90662; 94640; 94762; A9270-GY; C9113; G0008; J0171; J0330; J0694; J1100; J1170; J1200; J1644; J1815; J1815-GY; J2001; J2020; J2185; J2405; J2704; J2710; J2795; J3010; J3410; J3411; J3420; J3475; J3490; J7050; J7120; J7121; J7620-GY; Q9967